=== PATIENT | male | born 1960 | race Caucasian/White ===

== ENCOUNTER 2020-04-11 03:42 | Outpatient (REF) | payer OTHER, SELFPAY ==
[2020-04-11 17:38] LABS: Iron 47 mcg/dL (45-160); Percent Iron Saturation 15 % (15-50); Total Iron Binding Capacity 311 mcg/dL (228-428); Unsaturated Iron Binding 264 ug/dL
[2020-04-11 17:58] LABS: Ferritin 556 ng/mL (20-250)
== END 2020-04-11 03:43 | disposition home or self-care (01) ==
LOC: HO.LAB 03:42
PROVIDERS: PCP Nurse Practitioner Family; Visit Provider Internal Medicine Gastroenterology
DX: R79.89 Other specified abnormal findings of blood chemistry (principal)
CPT/HCPCS: 82728; 83540

== ENCOUNTER → 2020-04-15 11:25 | Outpatient (BNVA) | payer OTHER, SELFPAY | PROVIDERS: PCP Nurse Practitioner Family; Visit Provider Internal Medicine Gastroenterology | DX: Z76.89 Persons encountering health services in other specified circumstances (principal) ==

== ENCOUNTER 2020-08-27 16:01 | Outpatient (REF) | payer OTHER, SELFPAY ==
--- NOTE | ~2020-08-27 | XR_ITS ---
EXAMINATION: XR HAND/WRIST, RIGHT CLINICAL INFORMATION: Pain right wrist. COMPARISON: None TECHNIQUE: Three views right wrist. FINDINGS: There is no visible acute fracture, dislocation or subluxation. There is mild loss of PIP and DIP joint space with periarticular bony erosive changes DIP joint 2nd digit and periarticular spurring PIP joint 1st and 5th digits. No visible acute fracture, dislocation or subluxation seen. 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 No visible acute fracture or dislocation seen.
== END 2020-08-27 16:02 | disposition home or self-care (01) ==
LOC: HO.HMGCX 16:01
PROVIDERS: PCP Nurse Practitioner Family; Visit Provider Nurse Practitioner Family
DX: M25.531 Pain in right wrist (principal)
CPT/HCPCS: 73110; 73130

== ENCOUNTER → 2021-03-31 15:04 | Outpatient (BNVA) | payer OTHER, SELFPAY | PROVIDERS: PCP Nurse Practitioner Family; Visit Provider Internal Medicine | DX: Z76.89 Persons encountering health services in other specified circumstances (principal) ==

== ENCOUNTER 2021-03-31 15:31 | Emergency (ER) | payer OTHER, SELFPAY ==
--- NOTE | ~2021-03-31 | CT_ITS ---
EXAMINATION: CT HEAD WITHOUT CONTRAST CT CERVICAL SPINE WITHOUT CONTRAST CLINICAL INFORMATION: Fell. Pain. COMPARISON: None. TECHNIQUE: Imaging was performed from the skull base to vertex without intravenous administration of contrast. In addition, helical noncontrast CT imaging was acquired through the cervical spine and source images were reviewed along with axial reconstructions and sagittal and coronal MPRs. [This CT examination was performed using dose optimization techniques as appropriate, variously including the following: *Automated exposure control *Adjustment of mA and/or kV according to patient size (this includes techniques or standardized protocols for targeted exams where dose is matched to indication/reason for exam; i.e. extremities or head) *Use of iterative reconstruction technique] DLP: 1534 mGy-cm FINDINGS: HEAD: No intracranial mass, hemorrhage, or midline shift is visualized. The ventricles and sulci are proportional. No extra-axial collections are identified. The paranasal sinuses and mastoid air cells are well aerated. CERVICAL SPINE: There is no evidence of acute cervical spine fracture. Vertebral bodies remain normal in height. Cervical vertebrae have normal alignment. There is multilevel degenerative spondylosis of the cervical spine with disc height narrowing and endplate spurs and facet joint arthrosis No pre- or paravertebral soft tissue abnormality is identified. Limited assessment of the lung apices is unremarkable. CT/CT head/brain wo con IMPRESSION: 1. No acute intracranial pathology. 2. No CT evidence of acute cervical spine fracture or traumatic subluxation
--- NOTE | ~2021-03-31 | CT_ITS ---
EXAMINATION: CT HEAD WITHOUT CONTRAST CT CERVICAL SPINE WITHOUT CONTRAST CLINICAL INFORMATION: Fell. Pain. COMPARISON: None. TECHNIQUE: Imaging was performed from the skull base to vertex without intravenous administration of contrast. In addition, helical noncontrast CT imaging was acquired through the cervical spine and source images were reviewed along with axial reconstructions and sagittal and coronal MPRs. [This CT examination was performed using dose optimization techniques as appropriate, variously including the following: *Automated exposure control *Adjustment of mA and/or kV according to patient size (this includes techniques or standardized protocols for targeted exams where dose is matched to indication/reason for exam; i.e. extremities or head) *Use of iterative reconstruction technique] DLP: 1534 mGy-cm FINDINGS: HEAD: No intracranial mass, hemorrhage, or midline shift is visualized. The ventricles and sulci are proportional. No extra-axial collections are identified. The paranasal sinuses and mastoid air cells are well aerated. CERVICAL SPINE: There is no evidence of acute cervical spine fracture. Vertebral bodies remain normal in height. Cervical vertebrae have normal alignment. There is multilevel degenerative spondylosis of the cervical spine with disc height narrowing and endplate spurs and facet joint arthrosis No pre- or paravertebral soft tissue abnormality is identified. Limited assessment of the lung apices is unremarkable. CT/CT cervical spine wo con IMPRESSION: 1. No acute intracranial pathology. 2. No CT evidence of acute cervical spine fracture or traumatic subluxation
[2021-03-31 15:42] VITALS: BP 172/111; PULSE 73; RESP 18; TEMP 36.8; O2SAT 96; BMI 30.5
[2021-03-31] MEDS: Acetaminophen 325 MG TABLET 650 MG PO (16:14)
--- NOTE | 2021-03-31 16:31 | ED.HEATRA ---
HPI - Head Injury General Chief complaint: Head Injury Stated complaint: head inj Time Seen by Provider: 03/31/21 15:40 Source: patient Mode of arrival: ambulatory Limitations: no limitations History of Present Illness HPI Narrative: 60-year-old patient presents to ED for neck pain. 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 Patient states most of the asphalt fell on his posterior neck. Patient states he had hard helmet on. Patient denies falling to the ground or loss of consciousness. Patient states he was on the ground on his knees working and things fell on his head neck. Patient states since incident only having posterior neck pain. Patient denies any nausea, vomiting, dizziness, chest pain, shortness of breath, abdominal pain, rectal bleeding, photophobia, rectal bleeding, vomiting blood or headache MD Complaint: head injury Related Data Home Medications Medication Instructions Recorded Confirmed ciprofloxacin HCl 500 mg tablet 500 mg PO BID 08/27/20 metronidazole 500 mg tablet 500 mg PO BID 08/27/20 Previous Rx's Medication Instructions Recorded prednisone 20 mg tablet 20 mg PO DAILY 9 Days #18 tab 08/27/20 azithromycin 250 mg tablet See Rx Instructions PO .COMPLEX #6 02/12/21 tab cyclobenzaprine 10 mg tablet 10 mg PO TID PRN #18 tab 03/31/21 naproxen 500 mg tablet 500 mg PO BID PRN #20 tab 03/31/21 Allergies Allergy/AdvReac Type Severity Reaction Status Date / Time cephalexin [From KEFLEX] Allergy Unknown HIVES Unverified 07/07/20 16:06 Review of Systems Review of Systems: Yes all other systems are reviewed and are negative Constitutional: Constitutional: Reports as per HPI, Reports no additional constitutional complaints and Reports headache(s) (Mild) Eyes: Eyes: Reports as per HPI and Reports no additional eye complaints ENT: Reports system reviewed and no additional complaints, except as documented, Reports as per HPI, Reports headache(s) (Mild) and Reports neck pain (posterior) Cardiovascular: Cardiovascular: Reports as per HPI and Reports no additional cardiovascular complaints Respiratory: Respiratory: Reports as per HPI and Reports no additional respiratory complaints Gastrointestinal: Gastrointestinal: Reports as per HPI and Reports no additional gastrointestinal complaints Genitourinary: Genitourinary: Reports no additional male genitourinary complaints and Reports as per HPI Musculoskeletal: Musculoskeletal: Reports no additional musculoskeletal complaints, Reports as per HPI and Reports neck pain (posterior) Neurologic: Reports system reviewed and no additional complaints, except as documented, Reports as per HPI and Reports headache(s) (Mild) Psychiatric: Psychiatric: Reports no additional psychiatric complaints and Reports as per HPI [facility] Past Medical History Medical History (Updated 03/31/21 @ 17:30 by STEFANO Colindres) HTN (hypertension) Osteoarthritis of both knees Surgical History History of colonoscopy Family History Family History Father History of heart attack Mother History of colon cancer Hx of diabetes mellitus Social History Social History Alcohol intake: current Alcohol intake frequency: a few times a month Advance Directives: No Advance Directives Information Provided: No Physical Exam Vital Signs: Vital Signs: Last Vital Signs Temp 98.2 F 03/31/21 15:42 Pulse 67 03/31/21 17:18 Resp 16 03/31/21 17:18 BP 140/89 H 03/31/21 17:18 Pulse Ox 99 03/31/21 17:18 Body Mass Index 30.5 Const: General: cooperative, healthy appearing, comfortable, no acute distress, well developed, alert, awake and Physically active Orientation/consciousness: patient oriented x3 HENMT: Head: Yes normal to inspection, Yes No palpable skull fracture present, Yes normocephalic and Yes atraumatic Head images: 1. tenderness on palpation. 2. Tenderness on palpation. Ears: hearing grossly normal bilaterally, external ears normal, TM's normal bilaterally, EAC's normal, mastoids normal and no periauricular adenopathy Eyes: General: appearance normal, both eyes and all related structures Neck: Neck: Yes normal visual inspection, Yes full ROM, Yes no lymphadenopathy, Yes no meningeal signs, Yes trachea midline, Yes supple and Yes tender (posterior) Chest: Other: Negative for any ecchymosis or tenderness. Chest palpation & inspection: normal inspection of the chest and normal palpation of entire chest wall Resp: Effort & Inspection: normal respiratory effort and able to speak in complete sentences Auscultation: clear to auscultation bilaterally Cardio: Jugular venous distension: no JVD Heart sounds: S1 normal heart sound present and S2 normal heart sound present GI: Inspection: Yes normal to inspection and No abdominal wall ecchymosis Palpation (GI): Soft to palpation, not firm, nontender, no guarding and not rigid : General: No CVA tenderness and Yes no CVA tenderness Back/Spine/Pelvis: Back: no CVA tenderness, No CVA tenderness and No back tenderness Skin: General skin exam: no rashes or lesions noted and elasticity normal Neuro: General: patient oriented x3, gait normal, no meningeal signs and CN's II-XI intact bilaterally Cranial nerves: Yes CN's II-XII intact bilaterally Extrem: General: Yes normal to inspection and Yes full ROM Psych: Appearance: grossly normal, well kempt and not disheveled Course Course Course Narrative: Patient will be sent for head and neck CT scan. Patient given Tylenol. for patient presently not in distress on symptoms Reevaluation(s) Reevaluation #1: CT scan of cervical spine came back negative for any fracture. Patient alert oriented x3. Patient has normal gait. Body was re-examined once again negative for signs of trauma. Time: 17:27 MDM - Head Injury MDM Narrative Medical decision making narrative: Head injury Discharge Plan Discharge Clinical Impression: Head injury, Cervical strain Patient Disposition: Home, Self-Care Instructions: Head Injury (ED), Cervical Sprain (ED) Additional Instructions: Your head CT scan and cervical spine CT scan came back normal negative for any fracture or bleed. You will be discharged with NSAIDs and muscle relaxer. Return to the ED for severe headache, altered mental status, nausea, vomiting, blurry vision, paralysis of upper extremities, abdominal pain, chest pain, rectal bleeding, vomiting blood, or any other concerning symptoms. Please follow up with PCP Prescriptions: New naproxen 500 mg tablet 500 mg PO BID PRN (Reason: pain) Qty: 20 RF: 0 cyclobenzaprine 10 mg tablet 10 mg PO TID PRN (Reason: pain) Qty: 18 RF: 0 No Action azithromycin 250 mg tablet See Rx Instructions PO .COMPLEX Qty: 6 RF: 0 ciprofloxacin HCl 500 mg tablet 500 mg PO BID RF: 0 metronidazole 500 mg tablet 500 mg PO BID RF: 0 prednisone 20 mg tablet 20 mg PO DAILY 9 Days Qty: 18 RF: 0 Stand Alone Forms: Work/School Release Interventions: ED Discharge Assessment Last Done: 03/31/21 17:37 Discharge Date/Time: 03/31/21 17:38 Print Language: Colombian
[2021-03-31 17:18] VITALS: BP 140/89; PULSE 67; RESP 16; O2SAT 99
[2021-03-31] MEDS: Ibuprofen 800 MG TABLET PO (17:25)
== END 2021-03-31 17:38 | disposition home or self-care (01) ==
PROVIDERS: Emergency Provider Emergency Medicine; PCP Nurse Practitioner Family
DX: S16.1XXA Strain of muscle, fascia and tendon at neck level, initial encounter (principal); M54.2 Cervicalgia; G44.309 Post-traumatic headache, unspecified, not intractable; Y29.XXXA Contact with blunt object, undetermined intent, initial encounter; Y93.9 Activity, unspecified; Y92.9 Unspecified place or not applicable; Y99.0 Civilian activity done for income or pay; Z79.899 Other long term (current) drug therapy
CPT/HCPCS: 70450; 72125; 99283; 99284

== ENCOUNTER → 2021-04-01 10:54 | Outpatient (BNVA) | payer OTHER, SELFPAY | PROVIDERS: PCP Nurse Practitioner Family; Visit Provider Internal Medicine | DX: S16.1XXA Strain of muscle, fascia and tendon at neck level, initial encounter (principal); W22.8XXA Striking against or struck by other objects, initial encounter | CPT/HCPCS: 99202 ==

== ENCOUNTER → 2021-05-01 08:40 | Outpatient (BNVA) | payer OTHER, SELFPAY | PROVIDERS: PCP Nurse Practitioner Family; Visit Provider Physician Assistant Medical | DX: G35 Multiple sclerosis (principal) ==

== ENCOUNTER 2021-06-19 09:45 | Outpatient (REF) | payer OTHER, SELFPAY ==
[2021-06-19 10:41] LABS: Alanine Aminotransferase 21 U/L (0-40); Albumin Level 4.3 g/dL (3.5-5.0); Alkaline Phosphatase 66 U/L (39-117); Anion Gap 11 (12-20); Aspartate Amino Transferase 16 U/L (5-37); Bilirubin Total 1.4 mg/dL (0.0-1.0); Blood Urea Nitrogen 16 mg/dL (9-16); Calcium 9.7 mg/dL (8.4-10.2); Carbon Dioxide 29 mmol/L (22-29); Chloride 104 mmol/L (96-108); Cholesterol 211 mg/dL; Estimated Glomerular Filt Rate > 60; Glucose Fasting 104 mg/dL (60-99); HDL Cholesterol 54 mg/dL; LDL Cholesterol Calculated 137 mg/dl; Potassium 4.2 mmol/L (3.3-5.1); Sodium 140 mmol/L (135-145); Total Protein 7.6 g/dL (6.5-8.0); Triglycerides 102 mg/dL
[2021-06-19 11:04] LABS: Prostate Specific Antigen Scr 1.42 ng/mL (<0.05-4.0); TSH reflex Free T4 1.06 uIU/mL (0.32-4.0)
== END 2021-06-19 09:46 | disposition home or self-care (01) ==
LOC: HO.LAB 09:45
PROVIDERS: Visit Provider Nurse Practitioner Family
DX: Z12.5 Encounter for screening for malignant neoplasm of prostate (principal); Z13.29 Encounter for screening for other suspected endocrine disorder; Z13.220 Encounter for screening for lipoid disorders
CPT/HCPCS: 36415; 80053; 80061; 84153; 84443

== ENCOUNTER 2022-01-15 06:24 | Outpatient (REF) | payer OTHER, SELFPAY ==
[2022-01-15 08:18] LABS: C Reactive Protein 0.52 mg/dL (< or = 0.50); Cholesterol 185 mg/dL; HDL Cholesterol 52 mg/dL; LDL Cholesterol Calculated 121 mg/dl; Triglycerides 63 mg/dL
[2022-01-15 08:42] LABS: Ferritin 574 ng/mL (20-250)
[2022-01-15 08:52] LABS: Erythrocyte Sedimentation Rate 10 MM/HR (0-15)
== END 2022-01-15 06:25 | disposition home or self-care (01) ==
LOC: HO.LAB 06:24
PROVIDERS: PCP Nurse Practitioner Family; Visit Provider Nurse Practitioner Family
DX: E78.5 Hyperlipidemia, unspecified (principal); R79.89 Other specified abnormal findings of blood chemistry
CPT/HCPCS: 36415; 80061; 82728; 85652; 86140

== ENCOUNTER 2022-01-21 15:17 | Outpatient (REF) | payer OTHER, SELFPAY ==
[2022-01-21 16:38] LABS: Uric Acid 7.3 mg/dL (3.4-7.0)
[2022-01-21 16:53] LABS: Erythrocyte Sedimentation Rate 12 MM/HR (0-15)
== END 2022-01-21 15:18 | disposition home or self-care (01) ==
LOC: HO.LAB 15:17
PROVIDERS: PCP Nurse Practitioner Family; Visit Provider Podiatrist
DX: R70.0 Elevated erythrocyte sedimentation rate (principal); M10.9 Gout, unspecified
CPT/HCPCS: 36415; 84550; 85652

== ENCOUNTER → 2022-04-09 08:45 | Outpatient (BNVA) | payer OTHER, SELFPAY | PROVIDERS: PCP Nurse Practitioner Family | DX: Z02.79 Encounter for issue of other medical certificate (principal) ==

== ENCOUNTER 2023-02-09 09:22 | Outpatient (AMB) | payer OTHER, SELFPAY ==
--- NOTE | 2023-02-09 09:31 | A.OFFPC_ITS ---
Vital Signs 02/09/23 09:32 02/09/23 10:18 Height 6 ft Weight 222 lb 8 oz BMI 30.2 BP 160/102 H 136/98 H Blood Pressure Location Rt brachial Rt brachial Position Sitting Sitting Pulse 83 Pulse Source Pulse Oximeter Pulse Oximetry (%) 96 Oxygen Delivery Method Room Air Intake Visit Reasons: follow up Allergies cephalexin [From KEFLEX] Allergy (Unknown, Verified 02/09/23 09:33) HIVES Medication List - Last Reconciled 02/09/23 by KAL Weiss indomethacin 50 mg PO BID PRN 30 days Tobacco use date assessed: 02/09/23 Dental Screening Dental Screen Date: 02/09/23 Did you have a dental visit in the last 12 months?: Yes Did you have a dental problem in the last 6 months where you did not have access to dental care?: No Was dental information given to patient?: Patient has dentist HPI follow up HPI Details Pt is here for a PE. Will order labs. Colon screen is up to date. Due for PSA, will order. Denies dribbling with urination, weak stream, and nocturia. HTN: Will have pt monitor his blood pressure at home and record readings. Denies chest pain, shortness of breath, headache, dizziness, and blurred vision. Pt has a family hx of heart attack (father at age 54). Will do an EKG in office. Pt's left 5th finger is contracted (Dupuytren's contracture). Will refer to hand specialist. [facility] Medical History (Updated 02/09/23 @ 10:24 by KAL Weiss) HTN (hypertension) Lumbar radiculopathy Osteoarthritis of both knees Surgical History History of colonoscopy Family History Father History of heart attack Mother History of colon cancer Hx of diabetes mellitus Social History Housing: House Alcohol intake: current Alcohol intake frequency: a few times a month Patient Tobacco Use Status: Never used Tobacco e-Cigarette/Vaping Use: Never Used Second Hand Smoke Exposure: No service: No Current occupational status: employed Current occupation: [employer] Current occupational exposures/hazards: No Cognitive needs: No Hearing needs: No Vision needs: No Questionnaire Thrive Questionnaire Date Thrive assessed: 08/26/21 JENNIFER-7 AMB Questionnaire JENNIFER-7 Date JENNIFER - 7 assessed: 08/26/21 Source: Developed by Drs. Cristian Moreira, Cat Barajas, Isra Cedeno and colleagues, with an educational santy from [employer]. Review of Systems Const Denies chills and Denies fever(s) Eyes Denies blurry vision ENT Denies vertigo, Denies dizziness and Denies sore throat Card Denies chest pain at rest, Denies chest pain with activity, Denies diaphoresis, Denies dyspnea and Denies dyspnea on exertion Resp Denies cough, Denies dyspnea, Denies dyspnea on exertion and Denies wheezing GI Denies abdominal pain, Denies melena, Denies hematochezia, Denies constipation, Denies diarrhea and Denies loose stools Denies hematuria Musc Denies numbness and Denies tingling Skin/Breast Denies lesions Neuro Denies vertigo, Denies dizziness, Denies numbness and Denies tingling Psych Denies anxiety, Denies depression, Denies homicidal ideation, Denies suicidal ideation and Denies other (substance abuse) Aller/Immun Denies wheezing Physical exam (Primary Care) Vital Signs: Last Vital Signs Pulse 83 02/09/23 09:32 BP 136/98 H 02/09/23 10:18 Pulse Ox 96 02/09/23 09:32 Oxygen Delivery Method Room Air 02/09/23 09:32 BMI result Body Mass Index 30.2 Tobacco/Smoking Status: Tobacco use Status Tobacco use date assessed 02/09/23 02/09/23 09:39 Patient Tobacco Use Status Never used Tobacco 02/09/23 09:34 e-Cigarette/Vaping Use Never Used 02/09/23 09:34 Thrive Assessment: Date of Thrive Assessment Date Thrive assessed 08/26/21 02/09/23 09:34 Const General: cooperative Nutritional Appearance: well nourished Orientation/consciousness: patient oriented x3 HENMT Head: Yes normal to inspection, Yes normocephalic and Yes atraumatic Ears: TM's normal bilaterally Eyes General: appearance normal, both eyes and all related structures Alignment and Position: alignment normal and position normal Neck Neck: Yes normal visual inspection and Yes no lymphadenopathy Thyroid: Thyroid normal Resp Effort & Inspection: normal respiratory effort Auscultation: clear to auscultation bilaterally Cardio Rate: regular rate Rhythm: regular rhythm Heart sounds: S1 normal heart sound present, S2 normal heart sound present and no murmurs GI Palpation (GI): Soft to palpation and nontender Auscultation: normal bowel sounds Other: HERO: prostate not enlarged, no nodules palpated, palpable central groove Male General Exam: Yes normal external exam Penis: normal penis Scrotum: scrotum normal, testes descended bilaterally and no inguinal hernias Testes: no testicular mass Skin Rashes: no rashes Neuro General: patient oriented x3, moves all extremities, no focal motor deficits and deep tendon reflexes 2+ bilaterally Romberg Test: Negative Extrem Other: left hand 5th finger contracted/partially flexed, unable to completely extend (DC). just inferior with indurated linear tissue (DC) Psych Appearance: grossly normal Mental Status: mental status grossly normal Speech and movement: Normal speech and movement present Affect: normal affect Attitude: cooperative Thought process: Normal thought process present Thought content: Normal thought content present Insight: Good insight present (Psych) Judgement: Good judgement present (Psych) Assessment and Plan Assessment & Plan (1) Physical exam: Code(s): Z00.00 - Encounter for general adult medical examination without abnormal findings Plan: Labs ordered (2) Screening PSA (prostate specific antigen): Code(s): Z12.5 - Encounter for screening for malignant neoplasm of prostate Plan: PSA ordered (3) Dupuytren contracture: Code(s): M72.0 - Palmar fascial fibromatosis [Dupuytren] Plan The patient agreed to the use of a medical center representative for this encounter. Scribed for KAL Bolivar by Luisa Zhou medical center representative, on 02/09/2023 at 09:55 EST. Orders: Orders Comprehensive [place]. Panel Fast Today Z00.00 - Encounter for general adult medical examination without abnormal findings Lipid Panel Today Z00.00 - Encounter for general adult medical examination without abnormal findings TSH reflex Free T4 Today Z00.00 - Encounter for general adult medical examination without abnormal findings Complete Blood Count Auto Diff Today Z00.00 - Encounter for general adult medical examination without abnormal findings UA CC w/rflx Micro + Cult Today Z00.00 - Encounter for general adult medical examination without abnormal findings Prostate Specific Antigen Scr Today Z12.5 - Encounter for screening for malignant neoplasm of prostate AMB EKG-In Office Today Z00.00 - Encounter for general adult medical examination without abnormal findings Referrals Orthopedics Referral M72.0 - Palmar fascial fibromatosis [Dupuytren] Coding Level of Care Code Est Pt Prev Care 40-64y(64425) Diagnoses Physical exam Z00.00 Screening PSA (prostate specific antigen) Z12.5 Dupuytren contracture M72.0
[2023-02-09 09:32] VITALS: BP 160/102; PULSE 83; O2SAT 96; BMI 30.2
[2023-02-09 10:18] VITALS: BP 136/98
== END 2023-02-09 10:28 | disposition home or self-care (01) ==
PROVIDERS: PCP Nurse Practitioner Family; Visit Provider Nurse Practitioner Family
DX: Z00.00 Encounter for general adult medical examination without abnormal findings (principal); Z12.5 Encounter for screening for malignant neoplasm of prostate; M72.0 Palmar fascial fibromatosis [Dupuytren]
CPT/HCPCS: 99396

== ENCOUNTER 2023-08-25 09:19 | Outpatient (REF) | payer OTHER, SELFPAY ==
[2023-08-25 09:35] LABS: MANUAL DIFF FLAG NO
[2023-08-25 10:49] LABS: Basophils Percent Auto 0.5 % (0-2); Eosinophils Absolute Auto 0.1 X10*3/uL (0.0-0.4); Eosinophils Percent Auto 1.1 % (0-4); Hematocrit 48.2 % (42.0-52.0); Hemoglobin 16.3 g/dl (14.0-18.0); Imm Gran Abs Auto 0.03 X10*3/uL (0.00-0.03); Imm Gran Pct Auto 0.4 % (0.0-0.4); Lymphocytes Absolute Auto 2.1 X10*3/uL (1.2-4.9); Lymphocytes Percent Auto 28.6 % (20-40); Mean Corpuscular HGB Conc 33.8 g/dl (31.0-36.0); Mean Corpuscular Hemoglobin 29.7 pg (27.0-33.0); Mean Corpuscular Volume 87.8 fL (80.0-98.0); Mean Platelet Volume 10.1 fL (9.4-12.4); Monocytes Absolute Auto 0.6 X10*3/uL (0.1-1.2); Monocytes Percent Auto 8.3 % (2-11); Neutrophils Absolute Auto 4.5 x10*3/uL (2.0-8.3); Neutrophils Percent Auto 61.1 % (45-73); Platelet Count 275 X10*3/uL (160-400); Red Blood Count 5.49 X10*6/uL (4.60-5.80); Red Cell Distribution Width 12.3 % (11.0-16.0); White Blood Count 7.3 X10*3/uL (4.8-10.8)
[2023-08-25 10:52] LABS: Appearance Urine Clear; Color Urine Yellow; Glucose Urine UA Negative (Negative); Leukocyte Esterase Urine Negative (Negative); Nitrite Urine Negative (Negative); PH 5.5 (5.0-9.0); Urine Blood Negative (Negative); Urine Ketones Negative (Negative); Urine Protein Negative (Neg-Trace)
[2023-08-25 11:24] LABS: Alanine Aminotransferase 16 U/L (0-40); Albumin Level 4.2 g/dL (3.5-5.0); Alkaline Phosphatase 69 U/L (39-117); Anion Gap 14 (12-20); Aspartate Amino Transferase 15 U/L (5-37); Bilirubin Total 1.4 mg/dL (0.0-1.0); Blood Urea Nitrogen 14 mg/dL (9-16); Calcium 9.5 mg/dL (8.4-10.2); Carbon Dioxide 24 mmol/L (22-29); Chloride 107 mmol/L (96-108); Cholesterol 208 mg/dL (<200); Estimated Glomerular Filt Rate > 60; Glucose Fasting 104 mg/dL (60-99); HDL Cholesterol 59 mg/dL (>40); LDL Cholesterol Calculated 133 mg/dL (<100); Potassium 3.7 mmol/L (3.3-5.1); Sodium 141 mmol/L (135-145); Total Protein 7.6 g/dL (6.5-8.0); Triglycerides 83 mg/dL (<150)
[2023-08-25 11:40] LABS: TSH reflex Free T4 1.48 uIU/mL (0.32-4.0)
== END 2023-08-25 09:20 | disposition home or self-care (01) ==
LOC: HO.LAB 09:19
PROVIDERS: PCP Nurse Practitioner Family; Visit Provider Nurse Practitioner Family
DX: Z00.00 Encounter for general adult medical examination without abnormal findings (principal); Z12.5 Encounter for screening for malignant neoplasm of prostate; Z13.6 Encounter for screening for cardiovascular disorders
CPT/HCPCS: 36415; 80053; 80061; 81003; 84153; 84443; 85025

== ENCOUNTER 2023-08-30 08:59 | Outpatient (AMB) | payer OTHER, SELFPAY ==
[2023-08-30 09:08] VITALS: BP 130/88; PULSE 84; O2SAT 95; BMI 30.6
--- NOTE | 2023-08-30 09:08 | MHC.PC.OV ---
Vital Signs 08/30/23 09:08 Height 6 ft Weight 226 lb BMI 30.6 BP 130/88 Blood Pressure Location Lt brachial Position Sitting Pulse 84 Pulse Source Pulse Oximeter Pulse Oximetry (%) 95 Oxygen Delivery Method Room Air Intake Visit Reasons: Annual PE Intake Note: Pt is here for his Annual PE Allergies cephalexin [From KEFLEX] Allergy (Unknown, Verified 08/30/23 10:07) HIVES Medication List - Last Reconciled 08/30/23 by KAL Weiss indomethacin 50 mg PO BID PRN 30 days Tobacco use date assessed: 08/30/23 Dental Screening Dental Screen Date: 08/30/23 Did you have a dental visit in the last 12 months?: Yes Did you have a dental problem in the last 6 months where you did not have access to dental care?: No Was dental information given to patient?: Patient has dentist HPI Annual PE HPI Details Pt is here for a PE. Labs were already performed. Colon screen is up to date. PSA is up to date. Denies dribbling with urination, weak stream, and incomplete bladder emptying. He does report frequent nocturia but reports drinking a lot of water throughout the day. Pt was seeing GI for elevated ferritin which was thought to be due to excessive alcohol use. Will repeat ferritin. Pt brought in blood pressure from home and they are elevated. Pt does not want to start any medications for this. He would like to try to lower BP on his own and revisit in 6 months. Pt will continue to monitor his BP at home. Advised pt to cut down on sodium intake. Hx of dyslipidemia, will repeat labs. [facility] Medical History Lumbar radiculopathy HTN (hypertension) Osteoarthritis of both knees Surgical History History of colonoscopy Family History Father History of heart attack Mother History of colon cancer Hx of diabetes mellitus Social History Housing: House Alcohol intake: current Alcohol intake frequency: a few times a month Patient Tobacco Use Status: Never used Tobacco e-Cigarette/Vaping Use: Never Used Second Hand Smoke Exposure: No service: No Current occupational status: employed Current occupation: [employer] Current occupational exposures/hazards: No Cognitive needs: No Hearing needs: No Vision needs: No Questionnaire PHQ-9 Over the last 2 weeks, how often have you been bothered by any of the following problems? 1. Little interest or pleasure in doing things: not at all 2. Feeling down, depressed, or hopeless: not at all 3. Trouble falling or staying asleep, or sleeping too much: not at all 4. Feeling tired or having little energy: not at all 5. Poor appetite or overeating: not at all 6. Feeling bad about yourself - or that you are a failure or have let yourself or your family down: not at all 7. Trouble concentrating on things, such as reading the newspaper or watching television: not at all 8. Moving or speaking so slowly that other people could have noticed. Or the opposite - being so fidgety or restless that you have been moving around a lot more than usual: not at all 9. Thoughts that you would be better off or of hurting yourself in some way: not at all Total score: 0 Depression Screening Interpretation: Negative Depression Screening Done: Yes 81460 - PHQ-9 Billing: Yes Source: Developed by Drs. Cristian Moreira, Cat Barajas, Isra Cedeno and colleagues, with an educational santy from [employer]. Thrive Questionnaire Date Thrive assessed: 08/30/23 I am a: Patient What is your living situation today?: I have a steady place to live Within the past 12 months, did the food you bought not last and you didn't have the money to get more?: Never true Within the past 12 months, did you worry whether your food would run out before you got money to buy more?: Never true Do you have trouble paying for medicines?: No Do you have trouble getting transportation to medical appointments?: No Do you have trouble paying your heating and electricity bill?: No Do you have trouble taking care of your child, family member or friend?: No Do you have trouble with day-to-day activities such as bathing, preparing meals, shopping, managing finances, etc.?: No Are you currently unemployed and looking for a job?: No Are you interested in more education?: No Currently or been in a relationship where the following occur: no concerns reported THRIVE Score: 0 AUDIT C Alcohol Use Questionnaire (AUDIT-C) 1. How often do you have a drink containing alcohol?: 2-3 times a week 2. How many drinks containing alcohol do you have on a typical day when you are drinking?: 1 or 2 3. How often do you have six or more drinks on one occasion?: Never Total Score: 3 Score Reviewed/Action Taken: Yes JENNIFER-7 AMB Questionnaire JENNIFER-7 Date JENNIFER - 7 assessed: 08/30/23 Feeling nervous, anxious, or on edge: 0 = Not at all Not being able to stop or control worryin = Not at all Worrying too much about different things: 0 = Not at all Trouble relaxin = Not at all Being so restless that it is hard to sit still: 0 = Not at all Becoming easily annoyed or irritable: 0 = Not at all Feeling afraid as if something awful might happen: 0 = Not at all Total JENNIFER-7 score (0-4 normal; 5-9 mild; 10-14 moderate; 15-21 severe): 0 Source: Developed by Drs. Cristian Moreira, Cat Barajas, Isra Cedeno and colleagues, with an educational santy from [employer]. JENNIFER-7 Assessment Billing JENNIFER-7 Assessment Tool: JENNIFER-7 Assessment 73758 Review of Systems Const Denies chills and Denies fever(s) Eyes Denies blurry vision ENT Denies vertigo, Denies dizziness and Denies sore throat Card Denies chest pain at rest, Denies chest pain with activity, Denies diaphoresis, Denies dyspnea and Denies dyspnea on exertion Resp Denies cough, Denies dyspnea, Denies dyspnea on exertion and Denies wheezing GI Denies abdominal pain, Denies melena, Denies hematochezia, Denies constipation, Denies diarrhea and Denies loose stools Denies hematuria Musc Denies numbness and Denies tingling Skin/Breast Denies lesions Neuro Denies vertigo, Denies dizziness, Denies numbness and Denies tingling Psych Denies anxiety, Denies depression, Denies homicidal ideation, Denies suicidal ideation and Denies other (substance abuse) Aller/Immun Denies wheezing Physical exam (Primary Care) Vital Signs: Last Vital Signs Pulse 84 08/30/23 09:08 BP 130/88 08/30/23 09:08 Pulse Ox 95 08/30/23 09:08 Oxygen Delivery Method Room Air 08/30/23 09:08 BMI result Body Mass Index 30.6 Tobacco/Smoking Status: Tobacco use Status Tobacco use date assessed 08/30/23 08/30/23 09:14 Patient Tobacco Use Status Never used Tobacco 08/30/23 09:14 e-Cigarette/Vaping Use Never Used 08/30/23 09:14 Depression Screening Interpretation: Negative Thrive Assessment: Date of Thrive Assessment Date Thrive assessed 08/26/21 08/30/23 09:14 Currently or been in a relationship where the following occur: no concerns reported Const General: cooperative Nutritional Appearance: well nourished Orientation/consciousness: patient oriented x3 HENMT Head: Yes normal to inspection, Yes normocephalic and Yes atraumatic Ears: TM's normal bilaterally Eyes General: appearance normal, both eyes and all related structures Alignment and Position: alignment normal and position normal Neck Neck: Yes normal visual inspection and Yes no lymphadenopathy Thyroid: Thyroid normal Resp Effort & Inspection: normal respiratory effort Auscultation: clear to auscultation bilaterally Cardio Rate: regular rate Rhythm: regular rhythm Heart sounds: S1 normal heart sound present, S2 normal heart sound present and no murmurs GI Palpation (GI): Soft to palpation and nontender Auscultation: normal bowel sounds Male General Exam: Yes normal external exam Penis: normal penis Scrotum: scrotum normal, testes descended bilaterally and no inguinal hernias Testes: no testicular mass Skin Rashes: no rashes Neuro General: patient oriented x3, moves all extremities, no focal motor deficits and deep tendon reflexes 2+ bilaterally Romberg Test: Negative Psych Appearance: grossly normal Mental Status: mental status grossly normal Speech and movement: Normal speech and movement present Affect: normal affect Attitude: cooperative Thought process: Normal thought process present Thought content: Normal thought content present Insight: Good insight present (Psych) Judgement: Good judgement present (Psych) Assessment and Plan Assessment & Plan (1) Elevated ferritin: Code(s): R79.89 - Other specified abnormal findings of blood chemistry Plan: Ferritin ordered (2) Dyslipidemia: Code(s): E78.5 - Hyperlipidemia, unspecified Plan: labs ordered (3) HTN (hypertension): Code(s): I10 - Essential (primary) hypertension Plan: will cont to check BP, will see pt in 6 months, refused meds right now. Plan The patient agreed to the use of a medical psychotherapist for this encounter. Scribed for KAL Bolivar by Luisa Zhou medical psychotherapist, on 08/30/2023 at 09:20 EST. Orders: Orders Ferritin 2 Months E78.5 - Hyperlipidemia, unspecified, R79.89 - Other specified abnormal findings of blood chemistry Comprehensive [place]. Panel Fast 2 Months E78.5 - Hyperlipidemia, unspecified Lipid Panel 2 Months E78.5 - Hyperlipidemia, unspecified Coding Level of Care Code Est Pt Prev Care 40-64y(14288) Diagnoses Elevated ferritin R79.89 Dyslipidemia E78.5 HTN (hypertension) I10 Additional Codes JENNIFER-7 Assessment Billing - JENNIFER-7 Assessment Tool: JENNIFER-7 Assessment [id number] ([id number])
== END 2023-08-30 09:41 | disposition home or self-care (01) ==
PROVIDERS: PCP Nurse Practitioner Family; Visit Provider Nurse Practitioner Family
DX: Z00.00 Encounter for general adult medical examination without abnormal findings (principal); R79.89 Other specified abnormal findings of blood chemistry; E78.5 Hyperlipidemia, unspecified; I10 Essential (primary) hypertension
CPT/HCPCS: 99396

== ENCOUNTER 2023-11-11 08:58 | Outpatient (REF) | payer OTHER, SELFPAY ==
[2023-11-11 10:38] LABS: Alanine Aminotransferase 19 U/L (0-40); Albumin Level 4.3 g/dL (3.5-5.0); Alkaline Phosphatase 63 U/L (39-117); Anion Gap 14 (12-20); Aspartate Amino Transferase 15 U/L (5-37); Bilirubin Total 1.2 mg/dL (0.0-1.0); Blood Urea Nitrogen 18 mg/dL (9-16); Calcium 9.5 mg/dL (8.4-10.2); Carbon Dioxide 24 mmol/L (22-29); Chloride 106 mmol/L (96-108); Cholesterol 193 mg/dL (<200); Estimated Glomerular Filt Rate > 60; Glucose Fasting 101 mg/dL (60-99); HDL Cholesterol 54 mg/dL (>40); LDL Cholesterol Calculated 119 mg/dL (<100); Potassium 3.7 mmol/L (3.3-5.1); Sodium 140 mmol/L (135-145); Total Protein 7.8 g/dL (6.5-8.0); Triglycerides 100 mg/dL (<150)
[2023-11-11 10:53] LABS: Ferritin 604 ng/mL (20-250)
== END 2023-11-11 08:59 | disposition home or self-care (01) ==
LOC: HO.LAB 08:58
PROVIDERS: PCP Nurse Practitioner Family; Visit Provider Nurse Practitioner Family
DX: E78.5 Hyperlipidemia, unspecified (principal); R79.89 Other specified abnormal findings of blood chemistry
CPT/HCPCS: 36415; 80053; 80061; 82728

== ENCOUNTER 2024-02-29 09:33 | Outpatient (AMB) | payer BC, SELFPAY ==
--- NOTE | 2024-02-29 09:38 | A.OFFPC_ITS ---
Vital Signs 02/29/24 09:44 Height 6 ft Weight 225 lb BMI 30.5 BP 140/82 H Blood Pressure Location Rt brachial Position Sitting Pulse 82 Pulse Source Pulse Oximeter Pulse Oximetry (%) 97 Oxygen Delivery Method Room Air Intake Visit Reasons: 6M F/U Intake Note: pt is here for 6 month follow up Public Address System Operator Required: No Accompanied by: Self / Same As Patient Allergies cephalexin [From KEFLEX] Allergy (Unknown, Verified 02/29/24 09:48) HIVES Tobacco use date assessed: 08/30/23 Dental Screening Dental Screen Date: 08/30/23 HPI 6M F/U HPI Details HTN: Pt's blood pressure is elevated today. Pt reports that his blood pressure at home is stable (see scanned copy). He reports that he has been limiting his sodium intake. Pt has been walking and remaining active. Will have pt continue to monitor his blood pressure at home. Will order labs. Dyslipidemia: Will order labs. Denies chest pain, shortness of breath, headache, dizziness, and blurred vision. 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 1. Little interest or pleasure in doing things: not at all 2. Feeling down, depressed, or hopeless: not at all 3. Trouble falling or staying asleep, or sleeping too much: not at all 4. Feeling tired or having little energy: not at all 5. Poor appetite or overeating: not at all 6. Feeling bad about yourself - or that you are a failure or have let yourself or your family down: not at all 7. Trouble concentrating on things, such as reading the newspaper or watching television: not at all 8. Moving or speaking so slowly that other people could have noticed. Or the opposite - being so fidgety or restless that you have been moving around a lot more than usual: not at all 9. Thoughts that you would be better off or of hurting yourself in some way: not at all Total score: 0 Depression Screening Interpretation: Negative Depression Screening Done: Yes 14410 - PHQ-9 Billing: Yes Source: Developed by Drs. Cristian Moreira, Cat Barajas, Isra Cedeno and colleagues, with an educational santy from [employer]. Thrive Questionnaire Date Thrive assessed: 02/29/24 I am a: Patient What is your living situation today?: I have a steady place to live Within the past 12 months, did the food you bought not last and you didn't have the money to get more?: I choose not to answer this question Within the past 12 months, did you worry whether your food would run out before you got money to buy more?: Never true Do you have trouble paying for medicines?: I choose not to answer this question Do you have trouble getting transportation to medical appointments?: I choose not to answer this question Do you have trouble paying your heating and electricity bill?: I choose not to answer this question Do you have trouble taking care of your child, family member or friend?: I choose not to answer this question Do you have trouble with day-to-day activities such as bathing, preparing meals, shopping, managing finances, etc.?: No Are you currently unemployed and looking for a job?: No Are you interested in more education?: Yes Please select the resources that you would like help with: None Currently or been in a relationship where the following occur: I choose not to answer THRIVE Score: 0 AUDIT C Alcohol Use Questionnaire (AUDIT-C) 1. How often do you have a drink containing alcohol?: 2-4 times a month 2. How many drinks containing alcohol do you have on a typical day when you are drinking?: 1 or 2 3. How often do you have six or more drinks on one occasion?: Never Total Score: 2 Score Reviewed/Action Taken: Yes JENNIFER-7 AMB Questionnaire JENNIFER-7 Date JENNIFER - 7 assessed: 02/29/24 Feeling nervous, anxious, or on edge: 0 = Not at all Not being able to stop or control worryin = Not at all Worrying too much about different things: 0 = Not at all Trouble relaxin = Not at all Being so restless that it is hard to sit still: 0 = Not at all Becoming easily annoyed or irritable: 0 = Not at all Feeling afraid as if something awful might happen: 0 = Not at all Total JENNIFER-7 score (0-4 normal; 5-9 mild; 10-14 moderate; 15-21 severe): 0 Source: Developed by Drs. Cristian Moreira, Cat Barajas, Isra Cedeno and colleagues, with an educational santy from [employer]. JENNIFER-7 Assessment Billing JENNIFER-7 Assessment Tool: JENNIFER-7 Assessment [id number] Review of Systems Const Reports as per HPI Physical exam (Primary Care) Vital Signs: Last Vital Signs Pulse 82 02/29/24 09:44 BP 140/82 H 02/29/24 09:44 Pulse Ox 97 02/29/24 09:44 Oxygen Delivery Method Room Air 02/29/24 09:44 BMI result Body Mass Index 30.5 Tobacco/Smoking Status: Tobacco use Status Tobacco use date assessed 08/30/23 02/29/24 09:38 Patient Tobacco Use Status Never used Tobacco 02/29/24 09:38 e-Cigarette/Vaping Use Never Used 02/29/24 09:38 PHQ-9: PHQ-9 Score PHQ-9: Total score 0 02/29/24 09:50 Depression Screening Interpretation: Negative Thrive Assessment: Date of Thrive Assessment Date Thrive assessed 02/29/24 02/29/24 09:50 Currently or been in a relationship where the following occur: I choose not to answer Const General: cooperative Orientation/consciousness: patient oriented x3 Resp Effort & Inspection: normal respiratory effort Auscultation: clear to auscultation bilaterally Cardio Rate: regular rate Rhythm: regular rhythm Heart sounds: S1 normal heart sound present and S2 normal heart sound present Neuro General: patient oriented x3 Psych Appearance: grossly normal Mental Status: mental status grossly normal Speech and movement: Normal speech and movement present Affect: normal affect Attitude: cooperative Thought process: Normal thought process present Thought content: Normal thought content present Insight: Good insight present (Psych) Judgement: Good judgement present (Psych) Assessment and Plan Assessment & Plan (1) HTN (hypertension): Code(s): I10 - Essential (primary) hypertension Plan: cont to monitor BP at home (2) Dyslipidemia: Code(s): E78.5 - Hyperlipidemia, unspecified Plan: labs ordered Plan The patient agreed to the use of a medical assisting instructor for this encounter. Scribed for KAL Bolivar by Luisa Zhou medical assisting instructor, on 02/29/2024 at 10:00 EST. Orders: Orders Complete Blood Count Auto Diff Today E78.5 - Hyperlipidemia, unspecified, I10 - Essential (primary) hypertension Comprehensive [place]. Panel Fast Today E78.5 - Hyperlipidemia, unspecified, I10 - Essential (primary) hypertension TSH reflex Free T4 Today E78.5 - Hyperlipidemia, unspecified, I10 - Essential (primary) hypertension Lipid Panel Today E78.5 - Hyperlipidemia, unspecified, I10 - Essential (primary) hypertension UA CC w/rflx Micro + Cult Today E78.5 - Hyperlipidemia, unspecified, I10 - Essential (primary) hypertension Coding Level of Care Code Est Pt Level 3 (24279) Diagnoses HTN (hypertension) I10 Dyslipidemia E78.5 Additional Codes JENNIFER-7 Assessment Billing - JENNIFER-7 Assessment Tool: JENNIFER-7 Assessment [id number] ([id number])
[2024-02-29 09:44] VITALS: BP 140/82; PULSE 82; O2SAT 97; BMI 30.5
== END 2024-02-29 11:50 | disposition home or self-care (01) ==
PROVIDERS: PCP Nurse Practitioner Family; Visit Provider Nurse Practitioner Family
DX: I10 Essential (primary) hypertension (principal); E78.5 Hyperlipidemia, unspecified
CPT/HCPCS: 83036; 99213

== ENCOUNTER 2024-03-23 08:05 | Outpatient (REF) | payer BC, SELFPAY ==
[2024-03-23 08:16] LABS: MANUAL DIFF FLAG NO
[2024-03-23 08:28] LABS: Basophils Absolute Auto 0.1 X10*3/uL (0.0-0.2); Basophils Percent Auto 0.6 % (0-2); Eosinophils Absolute Auto 0.2 X10*3/uL (0.0-0.4); Eosinophils Percent Auto 1.9 % (0-4); Hemoglobin 16.5 g/dl (14.0-18.0); Imm Gran Abs Auto 0.03 X10*3/uL (0.00-0.03); Imm Gran Pct Auto 0.4 % (0.0-0.4); Lymphocytes Percent Auto 23.9 % (20-40); Mean Corpuscular HGB Conc 34.4 g/dl (31.0-36.0); Mean Corpuscular Hemoglobin 30.6 pg (27.0-33.0); Mean Corpuscular Volume 88.9 fL (80.0-98.0); Mean Platelet Volume 9.5 fL (9.4-12.4); Monocytes Absolute Auto 0.8 X10*3/uL (0.1-1.2); Monocytes Percent Auto 8.9 % (2-11); Neutrophils Absolute Auto 5.5 x10*3/uL (2.0-8.3); Neutrophils Percent Auto 64.3 % (45-73); Platelet Count 322 X10*3/uL (160-400); Red Cell Distribution Width 12.3 % (11.0-16.0); White Blood Count 8.5 X10*3/uL (4.8-10.8)
[2024-03-23 08:37] LABS: Appearance Urine Clear; Color Urine Yellow; Glucose Urine UA Negative (Negative); Leukocyte Esterase Urine Trace (Negative); Nitrite Urine Negative (Negative); PH 5.5 (5.0-9.0); UMIC TRIGGER UACC YES; Urine Blood Negative (Negative); Urine Ketones Negative (Negative); Urine Protein Negative (Neg-Trace)
[2024-03-23 08:40] LABS: Bacteria Urine None Seen (None Seen); Hyaline Casts Urine 0-2 /LPF (0-2); RBC Urine 0-2 /HPF (0-2); Squamous Epithelial Cell Urine 0-2 /HPF (0-2); WBC Urine 0-5 /HPF (0-5)
[2024-03-23 09:09] LABS: Alanine Aminotransferase 47 U/L (0-40); Albumin Level 4.2 g/dL (3.5-5.0); Alkaline Phosphatase 64 U/L (39-117); Anion Gap 13 (12-20); Aspartate Amino Transferase 38 U/L (5-37); Bilirubin Total 0.8 mg/dL (0.0-1.0); Blood Urea Nitrogen 14 mg/dL (9-16); Calcium 9.9 mg/dL (8.4-10.2); Carbon Dioxide 25 mmol/L (22-29); Chloride 107 mmol/L (96-108); Cholesterol 161 mg/dL (<200); Estimated Glomerular Filt Rate > 60; Glucose Fasting 106 mg/dL (60-99); HDL Cholesterol 44 mg/dL (>40); Iron 75 mcg/dL (45-160); LDL Cholesterol Calculated 100 mg/dL (<100); Percent Iron Saturation 31 % (15-50); Potassium 3.9 mmol/L (3.3-5.1); Sodium 141 mmol/L (135-145); Total Iron Binding Capacity 240 mcg/dL (228-428); Total Protein 7.8 g/dL (6.5-8.0); Triglycerides 86 mg/dL (<150); Unsaturated Iron Binding 165 ug/dL
[2024-03-23 09:27] LABS: Ferritin 889 ng/mL (20-250)
== END 2024-03-23 08:06 | disposition home or self-care (01) ==
LOC: HO.LAB 08:05
PROVIDERS: PCP Nurse Practitioner Family; Visit Provider Nurse Practitioner Family
DX: I10 Essential (primary) hypertension (principal); E78.5 Hyperlipidemia, unspecified; R79.89 Other specified abnormal findings of blood chemistry
CPT/HCPCS: 36415; 80053; 80061; 81001; 82728; 83540; 84443; 85025

== ENCOUNTER → 2024-04-25 08:42 | Outpatient (BNV) | payer BC, SELFPAY | PROVIDERS: PCP Nurse Practitioner Family; Referring Provider Nurse Practitioner Family; Visit Provider Internal Medicine Medical Oncology | DX: R79.89 Other specified abnormal findings of blood chemistry (principal) | CPT/HCPCS: 99204 ==

== ENCOUNTER 2024-09-26 10:02 | Outpatient (AMB) | payer BC, SELFPAY ==
--- NOTE | 2024-09-26 10:04 | A.OFFPC_ITS ---
Vital Signs 09/26/24 10:05 Height 6 ft Weight 231 lb BMI 31.3 BP 130/82 Blood Pressure Location Lt brachial Position Sitting Pulse 90 Pulse Source Pulse Oximeter Pulse Oximetry (%) 96 Oxygen Delivery Method Room Air Intake Visit Reasons: PE Risk Intern Required: No Accompanied by: Self / Same As Patient Allergies cephalexin [From KEFLEX] Allergy (Unknown, Verified 09/26/24 11:11) HIVES Medication List - Last Reconciled 09/26/24 by ADRIANNE Weiss No Known Home Meds Tobacco use date assessed: 09/26/24 Dental Screening Dental Screen Date: 09/26/24 Did you have a dental visit in the last 12 months?: Yes Did you have a dental problem in the last 6 months where you did not have access to dental care?: No Was dental information given to patient?: Patient has dentist HPI PE HPI Details History of Present Illness The patient is a 64-year-old male presenting for a physical examination. Recently, he has taken significant steps to improve his lifestyle, including initiating a routine exercise program and modifying his diet for the better. These changes have positively affected his blood pressure management and his overall health status. He denies any cardiac symptoms including chest pain or shortness of breath, and there are no systemic symptoms like fever or chills. No gastrointestinal or urinary complaints were reported. Further, he denies psychological concerns such as suicidal or homicidal thoughts. During the examination, small, dry, papular growths were noted on his proximal thighs bilaterally, likely representing seborrheic keratosis, likely exacerbated by sun exposure, given his multiple freckles. There are no suspicious lesions identified. Essential hypertension is known in his history, but current lifestyle improvements suggest better control over this condition. Health Maintenance - Exercise routine initiation - Dietary improvements - Regular blood pressure monitoring - Colon cancer screening up to date - Order PSA test Social History - The patient is retired. - Has started a structured exercise rout ine. - Improved dietary habits. Review of Systems - Cardiovascular: Denies chest pain. - Respiratory: Denies shortness of breat h. - Constitutional: Denies fever or chills . - Urinary: Denies any urinary issues. - Gastrointestinal: Denies abdominal iss ues, constipation, diarrhea, blood in stool. - Psychiatric: Denies suicidal or homici daniel ideation. Physical Exam General: Cooperative, healthy appearing, comfortable, no acute distress and well developed Orientation: Patient oriented x3 Limitations: No limitations Head: Normal to inspection Ears: Hearing grossly normal bilaterally Nose: Normal external nose present Face and sinus: Normal facial exam Eyes: Appearance normal, both eyes and all related structures Neck: Normal visual inspection and Yes full ROM Respiratory: Normal respiratory effort and able to speak in complete sentences. Clear to auscultation bilaterally Cardiovascular: Regular rate and rhythm. Normal S1 and S2 GI: Normal to inspection. Soft to palpation and nontender gu: lauro: no nodules palpated, did not feel enlarged Skin: Small papular growths mostly on proximal thighs, bilateral. Dry appearing, possible seborrheic keratosis. Multiple freckles noted. Referral to dermatology for evaluation. Neuro: Patient oriented x3 Extremities: Normal to inspection Results Plan The patient's wellness examination focused on maintaining improved control of essential hypertension attributed to a healthier lifestyle incorporating exercise and dietary changes. The small papular lesions on the thighs, suggestive of seborrheic keratosis, require dermatological evaluation, given his sun exposure. I will proceed with a PSA test for routine prostate screening consistent with health maintenance advisories. Continuation of current lifestyle interventions remains crucial, alongside routine surveillance and updated screenings, which presently are in accordance with guidelines. Discussion Notes During the visit, I discussed the current status of the patient's essential hypertension, emphasizing the positive impacts of lifestyle changes like improved diet and regular physical activity. The small growths on the patient's thighs, likely seborrheic keratosis, were acknowledged; I recommended a dermatology referral for further evaluation. We also reviewed the significance of the PSA test in ongoing health maintenance, ensuring the patient's understanding of these preventive measures. Follow-up on these evaluations and any necessary adaptations to his health management plan were planned with patient consent to proceed. Patient Instructions - Continue engagement in regular physica l exercise. - Maintain a healthy diet. - Monitor and keep a log of blood pressu re readings. - Follow up with dermatology as directed for thigh lesions. - Attend to scheduled PSA test and repor t the results. - Remain vigilant for any new or worseni ng symptoms and contact care providers as needed. [facility] Medical History Impingement of left shoulder Lumbar radiculopathy HTN (hypertension) Osteoarthritis of both knees Surgical History S/P shoulder surgery History of colonoscopy Family History Father History of heart attack Mother History of colon cancer Hx of diabetes mellitus Social History Household Members: Spouse Housing: House Alcohol intake: current Alcohol intake frequency: a few times a month Patient Tobacco Use Status: Never used Tobacco e-Cigarette/Vaping Use: Never Used Second Hand Smoke Exposure: No service: No Current occupational status: retired Current occupation: [employer] Current occupational exposures/hazards: No Cognitive needs: No Hearing needs: No Vision needs: No Questionnaire PHQ-9 Over the last 2 weeks, how often have you been bothered by any of the following problems? 1. Little interest or pleasure in doing things: not at all 2. Feeling down, depressed, or hopeless: not at all 3. Trouble falling or staying asleep, or sleeping too much: not at all 4. Feeling tired or having little energy: not at all 5. Poor appetite or overeating: not at all 6. Feeling bad about yourself - or that you are a failure or have let yourself or your family down: not at all 7. Trouble concentrating on things, such as reading the newspaper or watching television: not at all 8. Moving or speaking so slowly that other people could have noticed. Or the opposite - being so fidgety or restless that you have been moving around a lot more than usual: not at all 9. Thoughts that you would be better off or of hurting yourself in some way: not at all Total score: 0 Depression Screening Interpretation: Negative Depression Screening Done: Yes 77783 - PHQ-9 Billing: Yes Source: Developed by Drs. Cristian Moreira, Cat Barajas, Isra Cedeno and colleagues, with an educational santy from [employer]. Thrive Questionnaire Date Thrive assessed: 09/26/24 I am a: Patient What is your living situation today?: I have a steady place to live Within the past 12 months, did the food you bought not last and you didn't have the money to get more?: I choose not to answer this question Within the past 12 months, did you worry whether your food would run out before you got money to buy more?: I choose not to answer this question Do you have trouble paying for medicines?: I choose not to answer this question Do you have trouble getting transportation to medical appointments?: I choose not to answer this question Do you have trouble paying your heating and electricity bill?: I choose not to answer this question Do you have trouble taking care of your child, family member or friend?: I choose not to answer this question Do you have trouble with day-to-day activities such as bathing, preparing meals, shopping, managing finances, etc.?: I choose not to answer this question Are you currently unemployed and looking for a job?: I choose not to answer this question Are you interested in more education?: I choose not to answer this question Please select the resources that you would like help with: None Currently or been in a relationship where the following occur: I choose not to answer THRIVE Score: 0 AUDIT C Alcohol Use Questionnaire (AUDIT-C) 1. How often do you have a drink containing alcohol?: 2-4 times a month 2. How many drinks containing alcohol do you have on a typical day when you are drinking?: 1 or 2 3. How often do you have six or more drinks on one occasion?: Never Total Score: 2 Score Reviewed/Action Taken: Yes JENNIFER-7 AMB Questionnaire JENNIFER-7 Date JENNIFER - 7 assessed: 09/26/24 Feeling nervous, anxious, or on edge: 0 = Not at all Not being able to stop or control worryin = Not at all Worrying too much about different things: 0 = Not at all Trouble relaxin = Not at all Being so restless that it is hard to sit still: 0 = Not at all Becoming easily annoyed or irritable: 0 = Not at all Feeling afraid as if something awful might happen: 0 = Not at all Total JENNIFER-7 score (0-4 normal; 5-9 mild; 10-14 moderate; 15-21 severe): 0 Source: Developed by Drs. Cristian Moreira, Cat Barajas, Isra Cedeno and colleagues, with an educational santy from [employer]. JENNIFER-7 Assessment Billing JENNIFER-7 Assessment Tool: JENNIFER-7 Assessment 37694 Physical exam (Primary Care) Vital Signs: Last Vital Signs Pulse 90 09/26/24 10:05 BP 130/82 09/26/24 10:05 Pulse Ox 96 09/26/24 10:05 Oxygen Delivery Method Room Air 09/26/24 10:05 BMI result Body Mass Index 31.3 Tobacco/Smoking Status: Tobacco use Status Tobacco use date assessed 09/26/24 09/26/24 10:06 Patient Tobacco Use Status Never used Tobacco 09/26/24 10:06 e-Cigarette/Vaping Use Never Used 09/26/24 10:06 PHQ-9: PHQ-9 Score PHQ-9: Total score 0 09/26/24 10:06 Depression Screening Interpretation: Negative Thrive Assessment: Date of Thrive Assessment Date Thrive assessed 09/26/24 09/26/24 10:06 Currently or been in a relationship where the following occur: I choose not to answer Coding Level of Care Code Est Pt Prev Care 40-64y(54065) Diagnoses Physical exam Z00.00 Screening PSA (prostate specific antigen) Z12.5 Skin lesions L98.9 Additional Codes JENNIFER-7 Assessment Billing - JENNIFER-7 Assessment Tool: JENNIFER-7 Assessment 24990 ([id number]) PHQ-9 - 19341 - PHQ-9 Billing: Yes ([id number]) Assessment & Plan Assessment & Plan (1) Physical exam: Code(s): Z00.00 - Encounter for general adult medical examination without abnormal findings Category: Medical (2) Screening PSA (prostate specific antigen): Code(s): Z12.5 - Encounter for screening for malignant neoplasm of prostate Category: Medical (3) Skin lesions: Code(s): L98.9 - Disorder of the skin and subcutaneous tissue, unspecified Category: Medical Plan . Orders: Orders Comprehensive [place]. Panel Fast Today Z00.00 - Encounter for general adult medical examination without abnormal findings Lipid Panel Today Z00.00 - Encounter for general adult medical examination without abnormal findings Complete Blood Count Auto Diff Today Z00.00 - Encounter for general adult medical examination without abnormal findings TSH reflex Free T4 Today Z00.00 - Encounter for general adult medical examination without abnormal findings UA CC w/rflx Micro + Cult Today Z00.00 - Encounter for general adult medical examination without abnormal findings Prostate Specific Antigen Scr Today Z12.5 - Encounter for screening for malignant neoplasm of prostate Referrals Dermatology Referral L98.9 - Disorder of the skin and subcutaneous tissue, unspecified
[2024-09-26 10:05] VITALS: BP 130/82; PULSE 90; O2SAT 96; BMI 31.3
--- OUTSIDE RECORDS SUMMARY | 2024-09-26 11:36 | XMS_ITS ---
Author Organization [facility] Address [address] [place] [address] Care Team Providers Care Vice President Financial Name Role Phone Raymundo Govea Primary Care Provider Unav ailable Black, Erika Unavailable [phone] Allergies Allergen (clinical drug ingredient) Drug/Non Drug Allergy documented on EMR Reaction Allergy Type Onset Date Status Keflex Unknown Drug Allergy Active REASON FOR VISIT Foot pain, Painful nail(s) aggrevated by shoes causing difficulty standing/walking, Heel pain Medications Medication SIG (Take, Route, Frequency, Duration) Notes Start Date End Date Status Medrol 4 MG as directed Orally t hree times a day as directed for 6 days 01/21/2022 Not-Taking Night Splint AFO - L1930 1 wear at rest for 30 days Active Social History Tobacco Use: Social History Observation Description Date Details (start date - stop date) Never Smoker NA - NA Tobacco Use/Smoking Question Answer Notes Are you a: nonsmoker Additional Findings: Tobacco Non-User Current no n-smoker Alcohol Screen Question Answer Notes Did you have a drink contain ing alcohol in the past year? Yes How often did you have a dri nk containing alcohol in the past year? 2 to 3 times a week (3 points) Points 3 Interpretation Negative Tobacco use other than smoking: Question Answer Notes Are you an other tobacco user? No Problems Problem Type SNOMED Code ICD Code Onset Dates Problem Status W/U Status Risk Notes Problem Interstitial myositis (75403704) Interstitial myositis of right foot (M60.171) Active confirmed Vital Signs Height 6 ft in 11/09/2023 Weight 218 lbs 11/09/2023 BMI 29.56 kg/m2 11/09/2023 Procedures Procedure Date Ordered Date Performed Result Body Sit e 42719, J0702- Neuroma/Injection 11/09/2023 N/A Encounters Encounter Location Date Provider Diagnosis [facility] [address] [address] 11/09/2023 Erika Black Metatarsalgia of lef t foot M77.42 ; Plantar fasciitis of right foot M72.2 ; Bursitis of intermetatarsal bursa of left foot M77.52 ; Hammer toe of left foot M20.42 ; Neuritis M79.2 ; Pain in left foot M79.672 ; Pain in left ankle and joints of left foot M25.572 ; Pain of toe of right foot M79.674 ; Onychomycosis B35.1 ; Pain of toe of left foot M79.675 ; Conrad's neuroma of left foot G57.62 ; Pain in right foot M79.671 ; Interstitial myositis of right foot M60.171 and Bursitis of right foot M77.51 Assessments Encounter Date Diagnosis (ICD Code) Assessment Notes Treatment Notes Treatment Clinical Notes Section Notes 11/09/2023 Metatarsalgia of left foot (ICD-10 - M77.42) 11/09/2023 Plantar fasciitis of right foot (ICD-10 - M72.2) Patient Educated with: HEEL CORD STRETCHES.pdf (HEEL CORD STRETCHES.pdf ) Patient Educated with: RICE THERAPY.pdf (RICE THERAPY.pdf) 11/09/2023 Bursitis of intermetatarsal bursa of left foot (ICD-10 - M77.52) 11/09/2023 Hammer toe of left foot (ICD-10 - M20.42) 11/09/2023 Neuritis (ICD-10 - M79.2) 11/09/2023 Pain in left foot (ICD-10 - M79.672) 11/09/2023 Pain in left ankle and joints of left foot (ICD-10 - M25.572) 11/09/2023 Pain of toe of right foot (ICD-10 - M79.674) 11/09/2023 Onychomycosis (ICD-10 - B35.1) 11/09/2023 Pain of toe of left foot (ICD-10 - M79.675) 11/09/2023 Conrad's neuroma of left foot (ICD-10 - G57.62) Resistant to previous conservative treatment Patient Educated with: INJECTIONTHER APY.pdf (INJECTIONTHE RAPY.pdf) 11/09/2023 Pain in right foot (ICD-10 - M79.671) 11/09/2023 Interstitial myositis of right foot (ICD-10 - M60.171) 11/09/2023 Bursitis of right foot (ICD-10 - M77.51) Plan Of Treatment Medication Medication Name Sig Start Date Stop Date Notes Night Splint AFO - L1930 1 wear at rest for 30 days Treatment Notes Assessment Notes Plantar fasciitis of right foot Patient Educated with: HEEL CORD STRETCHES.pdf (HEEL CORD STRETCHES.pdf) Patient Educated with: RICE THERAPY.pdf (RICE THERAPY.pdf) Conrad's neuroma of left foot Patient Ed ucated with: INJECTIONTHERAPY.pdf (INJECTIONTHERAPY.pdf) Pending Test Test Name Order Date 11914, J0702- Neuroma/Injection 11/09/19 24 Next Appt Details Follow Up: 6 Months, Reason: Provider Name:Erika Dougherty , 11/01/2024 09:15:00 AM, [address] [place] [address], [id number], Procedure Notes * Category Sub-Category Detail Notes Injection Neuroma/Injection 14696, J0702 I njection - Neuroma w/ Celestone Soluspan 3mg combined with 1cc 1 percent Xylocaine Plain anes utilizing aseptic technique. The patient tolerated the procedure well. Post injection instructions were dispensed, verbally discussed, and confirmed understood by the patient. I explained that a steroid and local anesthetic injections are administered to relieve pain and inflammation and thereby meant to improve function. I explained the possible complications including but not limited to signs/symptoms of steroid flare, infection, bruising, atrophy, discoloration of skin, change/deviation in toe position, and that additional injections may be necessary, Patient relates post-procedural pain assessment improved at ( 0-1) out of 10 , LEFT Progress Notes * Álvaro NELSON ADOB:[birth year] (63 yo M)Acc No.[id number]:11/09/2023 Progress Note Patient:Álvaro Sexton Provider:?Erika Dougherty DPM :1960???Age:63 Y???Sex:Male José Miguel e:11/09/2023 Address:[address] [place] [address] , [id number] Pcp:LUIS ALBERTO Bolivar Subjective: * Chief Complaints: * ???Foot painPainful nail(s) aggrevated by shoes causing difficulty standing/walkingHeel pain * HPI: ???Foot Pain:?Nature:?numbness , tingling , sharp , shooting.?Location:?LEFT.?Duration:?several months.?Onset:?denies trauma- bulging disc L4L5S1.?Aggrevated:?standing , any pressure , especially toward the end of the day.?Treatments:?Physical therapy, walking,stretching , change in shoes,decrease activity,volteran gel , cortisone injection (1L).?Severity/Quality:?moderate.?Painful Nails:?Pt States Last PCP Visit:?Date:?09/14/2023 ?Treatments:?apple cidear vingear soaks.?Heel pain:?Location:?Proximal plantar aspect of Heel, RIGHT.?Duration:?, several weeks.?Course:?worse.?Aggrevated:?standing, walking, walking first thing in the morning/after rest.?Treatments:?rest/alter normal daily activity.? * ROS:?General/Constitutional:?Nausea?denies.?Vomiting?denies.?Hunger Thirst?denies.?Loss appetite?denies.?Chills?denies.?Fatigue?denies.?Fever?denies.?Night Sweats?denies.?Unexplained weight loss?denies.?Unexplained weight gain?denies.?HEENTM:?Dentures?denies.?Dizziness?denies.?Glasses/contacts?denies.?Retinopathy?de nies.?Blurred/double vision?denies.?TMJ?denies.?Discharge/drainage?denies.?Implants?denies.?Sore throat?denies.?Dental implants?denies.?Hard of hearing ?denies.?Difficulty chewing/swallowing/speaking?denies.?Nose bleeds?denies.?Sore mouth?denies.?Respiratory:?On Oxygen?denies.?Pneumonia/pleurisy?denies.?Bronchitis?denies.?Emphysema?denies.?C oughing?denies.?Cough blood?denies.?Shortness of breath?denies.?Wheezing?denies.?Cardiovascular:?Pacemaker?denies.?MVP?denies.?WPW?denies.?CHF?denies.?Heart attack?denies.?Septal defect?denies.?Rapid beat?denies.?Chest pain ?denies.?Atrial Fib.?denies.?Murmur/Palpitations?denies.?Gastrointestinal:?Hemorrhoids?denies.?Stomach/Abdominal pain?denies.?Dark blood stool?denies.?Irritable bowel ?denies.?Constipation?denies.?Diarrhea?denies.?Hematology:?Swelling?denies.?Clots?denies.?Varicose Veins?denies.?Bruising?denies.?Bleeding problem?denies.?Genitourinary:?Blood urine?denies.?Frequent/Painfu/urination/bladder control?denies.?Kidney stones?denies.?Infection (UTI)?denies.?Nephropathy?denies.?sex trans dis (STD)?denies.?Prostate?denies.?Musculoskeletal:?Hammertoes?denies.?Bunions?denies.?Back Pain?admits.?Muscle Cramps/ Resting?denies.?Muscle cramps / walking?denies.?Generalized aches and pains?admits.?Weakness?denies.?Integ.:?Nguyen?denies.?Scars?denies.?Corns/calluses?denies.?Ingrown nails?denies.?Painful nails?admits.?Open Sores?denies.?Rashes?denies.?Neurologic:?Difficulty sleeping?denies.?Brain disorder?denies.?Numbness?admits.?Balance trouble?denies.?Confusion?denies.?Fainting/blackouts?denies.?Tingling?admits.?Tr emors?denies.? * Medical History:? * Surgical History:?tumor morgan christiana finger surgery * Hospitalization/Major Diagno stic Procedure:?[facility] Diverticultis 01/08/2017 * Family History:?Mother: dece ased.?Father: , diagnosed with Diabetic - NIDDM, Unspecified essential hypertension, Unspecified heart disease.? * Social History:?Tobacco Use:?Tobacco Use/Smoking?Are you a:?nonsmoker ?Additional Findings: Tobacco Non-User?Current non-smoker ?Tobacco use other than smoking?Are you an other tobacco user??No ???Drugs/Alcohol:?Drugs?Have you used drugs other than those for medical reasons in the past 12 months??No ?Alcohol Screen?Did you have a drink containing alcohol in the past year??Yes ?How often did you have a drink containing alcohol in the past year??2 to 3 times a week (3 points) ?Points?3 ?Interpretation?Negative ???Miscellaneous:?no Caffeine. ?Children: yes, 3. ?Exercise: yes. ?Marital status: . ?Occupation: [employer]. * Medications:?Not-Taking/PRNM edrol 4 MG Tablet Therapy Pack as directed Orally three times a day as directedMedication List reviewed and reconciled with the patientNot-Taking/PRN Medrol 4 MG Tablet Therapy Pack as directed Orally three times a day as directedMedication List reviewed and reconciled with the patient * Allergies:?Keflexyes[Allergi es Verified] Objective: * Vitals:?Ht: 6 ft, Wt: 218, B MT:29.56, Shoe size: 10w. * Examination: ???General Examination: ?GENERAL APPEARANCE:?Reveals a pleasant, alert, well nourished, well developed, well hydrated individual, who demonstrates proper attention to hygene/body habitus, and is in no acute distress.?ORIENTED:?person, place, and time.?Vascular: ?DP PULSES:?2/4, B/L.?PT PULSES:? 2/4, B/L.?Neurological: ?SENSORY:?Neurological exam reveals intact sensorium, pain sensation normal, vibration sensation intact, pinprick sensation is normal in the lower extremities, Pt denies, anesthesia, burning, paresthesia, tingling, B/L.?TINEL'S COMPRESSION:?Negative tarsal tunnel, eleni pedis, and medial calcaneal nerves.?Orthopedic: ?GAIT ABNORMALITY:?antalgic.?FOOT MORPHOLOGY:? Pes Planus structure, Decreased Ankle joint dorsiflexion ROM, knee extended.?DIGITAL DEFORMITIES:?Digital contracture, PIPJ, 2-5 B/L, incompl-reducable to push-up test, no over, nor underlapping,.?MPJ PATHOLOGY:?Plantarflexed MT/MPJ , Pain, swelling, and inflammation to plantar MPJ(s) , 2nd , LEFT , MPJ pain with ROM.?Neuroma Pain: ?PALPATION:?Pain with direct palpation of the intermetatarsal space , 2nd interspace , positive Adia's click, , Pain with lateral compression of metatarsals , LEFT at 40 % less.?Nails: ?NAILS are:?Elongated, overgrown, dystrophic, lytic, greater than 3mm thick, discolored and friable with crumbly malodorous subungual debris, with pain on palpation , T5.?Heel Pain: ?INSPECTION:? Pain on Palpation to Plantar Fascia med. and central bands, intrinsic musc., infra-calcaneal bursa, and med calc tubercle , RIGHT foot, No pain: posterior/superior heel, achilles bursa/tendon, sinus tarsi, peroneals, or with lateral heel compression; no limited STJ ROM, calor, or ecchymosis.? Assessment: * Assessment: 1.?Metatarsalgia of left kanika t - M77.42?2.?Plantar fasciitis of right foot - M72.2 (Primary), Acute problem, Complicated w/ Multiple Tx Options(4),Dx New problem, Prognosis Uncertain (4)?3.?Bursitis of intermetatarsal bursa of left foot - M77.52?4.?Hammer toe of left foot - M20.42?5.?Neuritis - M79.2?6.?Pain in left foot - M79.672?7.?Pain in left ankle and joints of left foot - M25.572?8.?Pain of toe of right foot - M79.674?9.?Onychomycosis - B35.1?10.?Pain of toe of left foot - M79.675?11.?Conrad's neuroma of left foot - G57.62, Resistant to previous conservative treatment?12.?Pain in right foot - M79.671?13.?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 Bursitis of right foot - M77.51? Plan: * Treatment: 2.?Conrad's neuroma of left foot?Procedure: 63022, J0702- Neuroma/Injection Notes: Patient Educated with: INJECTIONTHERAPY.pdf (INJECTIONTHERAPY.pdf)?? * Procedures:?Injection:?Neuroma/Injection?97482, J0702 Injection - Neuroma w/ Celestone Soluspan 3mg combined with 1cc 1 percent Xylocaine Plain anes utilizing aseptic technique. The patient tolerated the procedure well. Post injection instructions were dispensed, verbally discussed, and confirmed understood by the patient. I explained that a steroid and local anesthetic injections are administered to relieve pain and inflammation and thereby meant to improve function. I explained the possible complications including but not limited to signs/symptoms of steroid flare, infection, bruising, atrophy, discoloration of skin, change/deviation in toe position, and that additional injections may be necessary, Patient relates post-procedural pain assessment improved at ( 0-1) out of 10 , LEFT.? * Procedure Codes:?15213 N BLO CK INJ, PLANTAR DIGIT, Modifiers: XS J0702 INJ BETAMETHSN ACTAT&SOD PHOSPH-3MG * Preventive Medicine:? ??Counseling:?Discussion:?-14: Office or other outpatient visit for the evaluation and management of an established patient, which required a medically appropriate history and/or examination and MODERATE level of DECISION MAKING for: 1 OR MORE CHRONIC PROBLEM(S) THATS WORSENING, 2 STABLE CHRONIC PROBLEMS, A NEWLY DIAGNOSED PROBLEM WITH UNCERTAIN PROGNOSIS, AN ACUTE COMPLICATED INJURY WITH MULTIPLE TREATMENT OPTIONS, OR AN ACUTE PROBLEM WITH ACCOMPANYING SYSTEMIC SYMPTOMS, THAT POSE(S) A MODERATE RISK OF MORBIDITY. THIS CONDITION MAY ALSO INCLUDE RX DRUG MANAGEMENT, OR A DECISON FOR MINOR SURGERY. The visit on the day of the encounter encompassed interpreting the data and educating the patient as to the nature of their condition, treatment options available according to their individual PMH, meds, allergies, and overall health/living conditions, as well as any potential risks or complications that may occur from a failure to adhere to, and participate in, the recommended course of therapy. The discussion included a complete verbal, and/or written explanation of the examination results, any x-rays taken, the proposed diagnosis, and outline of the treatment plan. A schedule for future care needs was also explained. The patient verbalized an understanding of the instructions at this time and agreed to be an active participant in their treatment. If the patient should think of any questions or concerns after the visit, I have encouraged the patient to call the office.?F/U Fungal nails:?Reviewed with the patient the time needed before we start seeing results with the topical medication. Discussed the results that we hope to see . We discussed the duration of time needed to see results., Nail debridement performed extensively to reduce/remove overall nail length and girth, subungual debris, and necrotic tissue, by manual and electrical means with use of a nail nipper and/or dremel, to more viable healthy nail plate or bed tissue. Silver nitrate used for any petechial bleeding as necessary.?Heel pain:?FASCIITIS: I explained to the patient the possible etiologies of Plantar Fasciitis including foot type/shoegear/activity level/exercise routine and the risks/benefits of all the different treatment options for heel pain including: No treatment at all, Rest, Ice, NSAIDs(only if well tolerated after meals), New/supportive Shoegear, Strappings and Tapings, Stretching exercises, Deep Tissue Massage, Heel cups/cushions, Arch support/shoe inserts, Custom orthoses, Topical analgesics including Aspercream/Voltaren gel, Night splint AFO for am stiffness, Cortisone injection therapy, Cast boot with crutches/cane/or walker for assisted ambulation, Physical Therapy, EPAT/ESWT, Interfil injection therapy, as well as surgical [place]/Endoscopic Fasciitomy surgical procedures if needed. Recommendations were made to limit barefoot walking, eliminate wearing nonsupportive shoegear (i.e. flip-flops or sandals, or a shoe with an easily bendable, foldable, or twistable sole) and wear shoegear with a good solid sole, a supportive arch, and plenty of room for an insert/orthotic if necessary. If wearing sandals was required by the patient, we recommended orthopedic sandals such as Orthoheel or Birkenstock even while in the home. If the patient wore heels in the past, we recommended they continue, but eliminate the use of flats. The advantages and disadvantages of each option were discussed and the patients questions re: types of shoegear, custom vs prefabricated inserts, activity level, PO vs Topical medications (and their respective potential complications/drug interactions/side effects), and consistency in home treatment regimens for optimal success were answered to their satisfaction. Literature detailing plantar fasciitis and the various treatment options were dispensed and reviewed, Stretching exercises for the patients injury/diagnosis were discussed and demonstrated, Handouts were also given.? * Follow Up:?6 Months * Images: * Sign off status: Completed true * Provider:?Erika Dougherty DPM Date:?2023 Generated for Abelardo reinoso/Veronica/eTerinsmitting on:?09/26/2024 11:35 AM EDT History and Physical Notes * HPI (History of Present Illness) Category Sub-Category Detail Notes Category Not es Heel pain Duration: , several weeks Location: Proximal plantar asp ect of Heel, RIGHT Aggravated: standing, walking, w alking first thing in the morning/after rest Course: worse Treatments: rest/alter normal da anabelle activity Painful Nails Treatments: apple cidear vingear soaks Pt States Last PCP Visit: Date:: 09/14/2023 Foot Pain Nature: numbness , tingling , sharp , shooting Location: LEFT Duration: several months Onset: denies trauma- bulgi ng disc L4L5S1 Aggravated: standing , any press ure , especially toward the end of the day Treatments: Physical therapy, wa lking,stretching , change in shoes,decrease activity,volteran gel , cortisone injection (1L) Severity/Quality: moderate Examination Category Sub-Category Detail Notes Category Not es Neuroma Pain PALPATION: Pain with direct palpation of the intermetatarsal space , 2nd interspace , positive Adia's click, , Pain with lateral compression of metatarsals , LEFT at 40 % less Neurological SENSORY: Neurological exa m reveals intact sensorium, pain sensation normal, vibration sensation intact, pinprick sensation is normal in the lower extremities, Pt denies, anesthesia, burning, paresthesia, tingling, B/L TINEL'S COMPRESSION: Negative tarsal tapan shereen, eleni pedis, and medial calcaneal nerves Orthopedic GAIT ABNORMALITY: antalgic FOOT MORPHOLOGY: Pes Planus structure , Decreased Ankle joint dorsiflexion ROM, knee extended FOOTWEAR EVALUATION: DIGITAL DEFORMITIES: Digital contracture , PIPJ, 2-5 B/L, incompl-reducable to push-up test, no over, nor underlapping, MPJ PATHOLOGY: Plantarflexed MT/MPJ , Pain, swelling, and inflammation to plantar MPJ(s) , 2nd , LEFT , MPJ pain with ROM General Examination GENERAL APPEARANCE: Reveals a pleasant, alert, well nourished, well developed, well hydrated individual, who demonstrates proper attention to hygene/body habitus, and is in no acute distress ORIENTED: person, place, and t zaid Vascular DP PULSES (B): 2/4, B/L PT PULSES (B): 2/4, B/L Nails NAILS are: Elongated, overg rown, dystrophic, lytic, greater than 3mm thick, discolored and friable with crumbly malodorous subungual debris, with pain on palpation , T5 Heel Pain INSPECTION: Pain on Palpatio n to Plantar Fascia med. and central bands, intrinsic musc., infra-calcaneal bursa, and med calc tubercle , RIGHT foot, No pain: posterior/superior heel, achilles bursa/tendon, sinus tarsi, peroneals, or with lateral heel compression; no limited STJ ROM, calor, or ecchymosis
--- OUTSIDE RECORDS SUMMARY | 2024-09-26 11:36 | XMS_ITS | Patient Health Record ---
Author Organization [facility] Marta Alanizley Address [address] [place] [address] Care Team Providers Care Access Services Librarian Name Role Phone Raymundo Govea Primary Care Provider Unav ailable Erika Dougherty Unavailable [phone] Allergies Allergen (clinical drug ingredient) Drug/Non Drug Allergy documented on EMR Reaction Allergy Type Onset Date Status Keflex Unknown Drug Allergy Active Reason For Referral Diagnosis 1 Other hammer toe(s) (acquired), right foot (M20.41) Diagnosis 2 Primary osteoarthrit is, right ankle and foot (M19.071) Diagnosis 3 Idiopathic gout, rig ht ankle and foot (M10.071) Diagnosis 4 Hammer toe of left f oot (M20.42) Diagnosis 5 Conrad's neuroma of left foot (G57.62) Diagnosis 6 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) Diagnosis 7 Plantar fasciitis of right foot (M72.2) Diagnosis 8 Tinea unguium (B35.1 ) Referring Provider First Name Raymundo Referring Provider Last Name Howard [facility] Referred Provider Erika Dougherty Referred Address [address],[place], [place],[address], Referred Provider Specialty Podiatry Referral Priority Routine Medications Medication SIG (Take, Route, Frequency, Duration) [...] Problem Status W/U Status Risk Notes Problem Acquired hammer toe of right foot ([id number] ) Other hammer toe(s) (acquired), right foot (M20.41) Active confirmed Problem Localized, primary osteoarthritis of the ankle and/or foot (109562931) Primary osteoarthritis , right ankle and foot (M19.071) Active confirmed Problem Primary gout (74611088) Idiopathic gout, right ankle and foot (M10.071) Active confirmed Problem Acquired hammer toe of left foot (8756153813567146 ) Hammer toe of left foot (M20.42) Active confirmed Problem Plantar fasciitis of right foot (8359357728700222 1) Plantar fasciitis of right foot (M72.2) Active confirmed Problem [id number] Conrad's neuroma of left foot (G57.62) Active confirmed Resistant to previous conservative treatment Problem Interstitial myositis (04829572) Interstitial myositis of right foot (M60.171) Active confirmed Vital Signs Height 6 ft in 05/03/2024 Weight 218 lbs 05/03/2024 BMI 29.56 kg/m2 05/03/2024 Procedures Procedure Date Ordered Date Performed Result Body Sit e 16807, J0702- Neuroma/Injection 11/09/2023 N/A 78838-JNHWNKO NAIL, 1-5 05/03/2024 N/A 16320, J0702- Neuroma/Injection 05/03/2024 N/A Encounters Encounter Location Date Provider Diagnosis [facility] [address] 11/09/2023 Erika Black Metatarsalgia of lef t [...] M60.171 and Bursitis of right foot M77.51 [facility] [address] [address] 05/03/2024 Erika Black Metatarsalgia of lef t foot [...] ; Interstitial myositis of right foot M60.171 ; Bursitis of right foot M77.51 and Toe pain, right M79.674 Assessments Encounter Date Diagnosis (ICD Code) Assessment Notes Treatment Notes Treatment Clinical Notes Section Notes 11/09/2023 Metatarsalgia of left foot (ICD-10 - M77.42) 11/09/2023 Plantar fasciitis of right foot (ICD-10 - M72.2) Patient Educated with: HEEL CORD STRETCHES.pdf (HEEL CORD STRETCHES.pdf ) Patient Educated with: RICE THERAPY.pdf (RICE THERAPY.pdf) 05/03/2024 Metatarsalgia of left foot (ICD-10 - M77.42) 05/03/2024 Plantar fasciitis of right foot (ICD-10 - M72.2) 05/03/2024 Bursitis of intermetatarsal bursa of left foot (ICD-10 - M77.52) 11/09/2023 Bursitis of intermetatarsal bursa of left foot (ICD-10 - M77.52) 05/03/2024 Hammer toe of left foot (ICD-10 - M20.42) 11/09/2023 Hammer toe of left foot (ICD-10 - M20.42) 11/09/2023 Neuritis (ICD-10 - M79.2) 05/03/2024 Neuritis (ICD-10 - M79.2) 05/03/2024 Pain in left foot (ICD-10 - M79.672) 11/09/2023 Pain in left foot (ICD-10 - M79.672) 11/09/2023 Pain in left ankle and joints of left foot (ICD-10 - M25.572) 05/03/2024 Pain in left ankle and joints of left foot (ICD-10 - M25.572) 05/03/2024 Pain of toe of right foot (ICD-10 - M79.674) 11/09/2023 Pain of toe of right foot (ICD-10 - M79.674) 11/09/2023 Onychomycosis (ICD-10 - B35.1) 05/03/2024 Onychomycosis (ICD-10 - B35.1) 05/03/2024 Pain of toe of left foot (ICD-10 - M79.675) 11/09/2023 Pain of toe of left foot (ICD-10 - M79.675) 11/09/2023 Conrad's neuroma of left foot (ICD-10 - G57.62) Resistant to previous conservative treatment Patient Educated with: INJECTIONTHER APY.pdf (INJECTIONTHE RAPY.pdf) 05/03/2024 Conrad's neuroma of left foot (ICD-10 - G57.62) Resistant to previous conservative treatment Patient Educated with: INJECTIONTHER APY.pdf (INJECTIONTHE RAPY.pdf) 05/03/2024 Pain in right foot (ICD-10 - M79.671) 11/09/2023 Pain in right foot (ICD-10 - M79.671) 11/09/2023 Interstitial myositis of right foot (ICD-10 - M60.171) 05/03/2024 Interstitial myositis of right foot (ICD-10 - M60.171) 05/03/2024 Bursitis of right foot (ICD-10 - M77.51) 11/09/2023 Bursitis of right foot (ICD-10 - M77.51) 05/03/2024 Toe pain, right (ICD-10 - M79.674) Plan Of Treatment Pending Test Test Name Order Date *Uric Acid, Serum 01/20/2022 *Sedimentation Rate-Westergren 2 44757-IRGSAOR NAIL, 1-5 05/03/2024 57359, J0702- Neuroma/Injection 05/03/20 24 63561, J0702- Neuroma/Injection 02/23/20 23 08445, J0702- Neuroma/Injection 11/09/19 24 Nail Panel 05/23/2017 Next Appt Details Provider Name:Erika Mariel Dougherty , 11/01/2024 09:15:00 AM, [address] [place], [address], Insurance Providers Payer Name Payer Address Payer Phone Subscriber Number Group Number Insured Name Patient Relationship to Insured Coverage Start Date Coverage End Date [facility] [address] [place] [address] [phone] [id number] Álvaro Alvarez Self - patient is the insured Medical (General) History Medical History History ICD Code knee pain Diverticulosis Gout Lyme disease Chicken pox Surgical History Surgery Date(Month/Year) tumor removal finger surgery Hospitalization History Reason Date(Month/Year) HH Diverticultis 01/08/2017
--- OUTSIDE RECORDS SUMMARY | 2024-09-26 11:36 | XMS_ITS ---
[facility] Address [address] [place] [place] [address] Care Team Providers Care Wreath Maker Name Role Phone Raymundo Govea Primary Care Provider Unav ailable Black, Erika Unavailable [phone] Allergies Allergen (clinical drug ingredient) Drug/Non Drug [...] Problem Status W/U Status Risk Notes Problem Plantar fasciitis of right foot (6706086329611 9101) Plantar fasciitis of right foot (M72.2) Active confirmed Vital Signs Height 6 ft in 05/03/2024 Weight 218 lbs 05/03/2024 BMI 29.56 kg/m2 05/03/2024 Procedures Procedure Date Ordered Date Performed Result Body Sit e 55716-CSRYQEZ NAIL, 1-5 05/03/2024 N/A 03737, J0702- Neuroma/Injection 05/03/2024 N/A Encounters Encounter Location Date Provider Diagnosis [facility] [address] [place] [address] 05/03/2024 Erika Black Metatarsalgia of lef t [...] Treatment Notes Treatment Clinical Notes Section Notes 05/03/2024 Metatarsalgia of left foot (ICD-10 - M77.42) 05/03/2024 Plantar fasciitis of right foot (ICD-10 - M72.2) 05/03/2024 Bursitis of intermetatarsal bursa of left foot (ICD-10 - M77.52) 05/03/2024 Hammer toe of left foot (ICD-10 - M20.42) 05/03/2024 Neuritis (ICD-10 - M79.2) 05/03/2024 Pain in left foot (ICD-10 - M79.672) 05/03/2024 Pain in left ankle and joints of left foot (ICD-10 - M25.572) 05/03/2024 Pain of toe of right foot (ICD-10 - M79.674) 05/03/2024 Onychomycosis (ICD-10 - B35.1) 05/03/2024 Pain of toe of left foot (ICD-10 - M79.675) 05/03/2024 Conrad's neuroma of left foot (ICD-10 - G57.62) Resistant to previous conservative treatment Patient Educated with: INJECTIONTHER APY.pdf (INJECTIONTHE RAPY.pdf) 05/03/2024 Pain in right foot (ICD-10 - M79.671) 05/03/2024 Interstitial myositis of right foot (ICD-10 - M60.171) 05/03/2024 Bursitis of right foot (ICD-10 - M77.51) 05/03/2024 Toe pain, right (ICD-10 - M79.674) Plan Of Treatment Treatment Notes Assessment Notes Conrad's neuroma of left foot Patient Ed ucated with: INJECTIONTHERAPY.pdf (INJECTIONTHERAPY.pdf) Pending Test Test Name Order Date 45103-ITWHBLC NAIL, 1-5 05/03/2024 09608, J0702- Neuroma/Injection 05/03/20 24 Next Appt Details Follow Up: 6 Months, Reason: Provider Name:Erika Dougherty , 11/01/2024 09:15:00 AM, [address] [place] [address], [place], [address], Procedure Notes * Category Sub-Category Detail Notes Injection Neuroma/Injection 51428, J0702 I njection - Neuroma w/ Celestone [...] ( 0-1) out of 10 , LEFT Debride Nails 1-5 Procedure: Performance of this nail treatment by a nonprofessional would put this patients foot and overall health at risk. Therefore, debridement to affected nail(s) as described in exam was performed extensively to reduce/remove overall nail length, girth, thickness, subungual debris, and necrotic tissue, by manual and/or electrical means through the use of a nail nipper and/or dremel-type tool grinder operator surface, to a more viable healthy nail plate or bed tissue 1-5. Silver nitrate used for any petechial bleeding as necessary. Definitive antifungal treatment options have been reviewed and discussed with the patient. The patient chooses, to continue with soaks tx - 03849 Progress Notes * Álvaro NELSON ADOB:[birth year] (63 yo M)Acc No.[id number]:05/03/2024 Progress Note Patient:?Álvaro Nelson A Provider:?Erika Dougherty DPM :1960???Age:63 Y???Sex:Male José Miguel e:05/03/2024 Address:[address] [place], [place] [address] Pcp:LUIS ALBERTO Bolivar Subjective: * Chief Complaints: * ???Foot painPainful nail(s) aggrevated by shoes causing difficulty standing/walkingHeel pain * HPI: ???Foot Pain:?Nature:?numbness , tingling , sharp , shooting.?Location:?LEFT.?Duration:?several months.?Onset:?denies trauma- bulging disc L4L5S1.?Course:?unchanged.?Aggravated:?standing , any pressure , especially toward the end of the day.?Treatments:?Physical therapy, walking,stretching , change in shoes,decrease activity,volteran gel , cortisone injection (2L).?Severity/Quality:?moderate , Pre-injection procedure pain assessment - (8) out of 10.?Painful Nails:?Pt States Last PCP Visit:?Date:?04/11/2024 ?Course:?improved 50 %.?Treatments:?apple cidear vingear soaks.?Heel pain:?Location:?Proximal plantar aspect of Heel, RIGHT.?Duration:?, several weeks.?Course:?, improved , at approximately 85%.?Aggravated:?standing, walking, walking first thing in the morning/after rest.?Treatments:?rest/alter normal daily activity , AFO-nightsplint , stretching.? * ROS:?General/Constitutional:?Nausea?denies.?Vomiting?denies.?Hunger Thirst?denies.?Loss appetite?denies.?Chills?denies.?Fatigue?denies.?Fever?denies.?Night Sweats?denies.?Unexplained weight loss?denies.?Unexplained [...] 3. ?Exercise: yes. ?Marital status: . ?Occupation: [employer]. * Medications:?TakingNight Spl int AFO - L1930 1 wear at restTaking Night Splint AFO - L1930 1 wear at restNot-Taking/PRNMedrol 4 MG Tablet Therapy Pack as directed Orally three times a day as directedMedication List reviewed and reconciled with the patientNot-Taking/PRN Medrol 4 MG Tablet Therapy Pack as directed Orally three times a day as directedMedication List reviewed and reconciled with the patient * Allergies:?Keflexyes[Allergi es Verified] Objective: * Vitals:?Ht:6 ft, Wt:218, BMI :29.56, Shoe size:10W, Ht-cm: 182.88 cm, Wt-k.88 kg. * Examination: ???General Examination: ?GENERAL APPEARANCE:?Reveals a pleasant, alert, well nourished, well developed, well hydrated individual, who demonstrates proper attention to hygene/body habitus, and is in no acute distress.?ORIENTED:?person, place, and time.?Vascular: ?DP PULSES(B):?2/4, B/L.?PT PULSES(B):? 2/4, B/L.?Neurological: ?SENSORY:?Neurological exam reveals intact sensorium, [...] Pain with lateral compression of metatarsals , LEFT?.?Nails: ?NAILS are:?Elongated, overgrown, dystrophic, lytic, greater than 3mm thick, discolored and friable with crumbly malodorous subungual debris, with pain on palpation , T5 , proximal clearing of nail 50? percent.?Heel Pain: ?INSPECTION:? Pain on Palpation to Plantar Fascia med. and central bands, intrinsic musc., infra-calcaneal bursa, and med calc tubercle , RIGHT foot, No pain: posterior/superior heel, achilles bursa/tendon, sinus tarsi, peroneals, or with lateral heel compression; no limited STJ ROM, calor, or ecchymosis, Approximately 85 % LESS.? Assessment: * Assessment: 1.?Metatarsalgia of left kanika t - M77.42, Acute problem, Stable?2.?Plantar fasciitis of right foot - M72.2 (Primary), Acute problem, Stable,Response to treatment - Improvement?3. Bursitis of intermetatarsal bursa of left foot - M77.52?4.?Hammer toe of left foot - M20.42?5.?Neuritis - M79.2?6.?Pain in left foot - M79.672?7.?Pain in left ankle and joints of left foot - M25.572?8.?Pain of toe of right foot - M79.674?9. 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 Plan: * Treatment: 2.?Conrad's neuroma of left foot?Procedure: 21998, J0702- Neuroma/Injection Notes: Patient Educated with: INJECTIONTHERAPY.pdf (INJECTIONTHERAPY.pdf)?? * Procedures:?Debride Nails 1-5:?Procedure:?Performance of this nail treatment by a nonprofessional would put this patients foot and overall health at risk. Therefore, debridement to affected nail(s) as described in exam was performed extensively to reduce/remove overall nail length, girth, thickness, subungual debris, and necrotic tissue, by manual and/or electrical means through the use of a nail nipper and/or dremel-type tool grinder operator surface, to a more viable healthy nail plate or bed tissue 1-5. Silver nitrate used for any petechial bleeding as necessary. Definitive antifungal treatment options have been reviewed and discussed with the patient. The patient chooses, to continue with soaks?tx - 13467.?Injection:?Neuroma/Injection?98683, J0702 Injection - Neuroma w/ Celestone Soluspan [...] out of 10 , LEFT.? * Procedure Codes:?45116 N BLO CK INJ, PLANTAR DIGIT, Modifiers: XS J0702 INJ BETAMETHSN ACTAT&SOD [id number] DEBRIDE NAIL, 1-5, Modifiers: XS * Preventive Medicine:? ??Counseling:?Discussion:?-14: Office or other [...] have encouraged the patient to call the office.?BioMech.:?I discussed the Pts foot biomechanics with them and how it relates to their problem.?Heel pain:?Discussed other tx options for the patients condition, Given recent successful results to treatment, the patient wishes to continue with the present plan for their condition.?Padding:?Added Metatarsal bar to lining of shoe, The patient and I reviewed the types of shoes they should be wearing. My recommendation included obtaining a well-fitted shoe with a good supportive, non-foldable nor twistable sole, plenty of toe/room for the forefoot, and proper arch support. Based on today's examination, I recommended the patient look for new shoes, by having their feet professionally measured. We discussed that generally the best time of the day for a shoe fitting is the afternoon. Different shoes types and brands to best match the patient's occupation and vocation were discussed. Specific brand selection will be up to the patient, their individual foot condition/deformities, and fit. The patient and I reviewed the standard new shoe break in period by wearing them for a few hours a day while checking for redness or sores as wear time is increased. The patient verbally confirmed to understanding the information discussed.? * Follow Up:?6 Months * Images: * Sign off status: Completed true * Provider:?Erika Dougherty DPM Date:?2023 Generated for Abelardo reinoso/Veronica/Ary on:?09/26/2024 11:35 AM EDT History and Physical Notes * HPI (History of Present Illness) Category Sub-Category Detail Notes Category Not es Heel pain Duration: , several weeks Location: Proximal plantar asp ect of Heel, RIGHT Aggravated: standing, walking, w alking first thing in the morning/after rest Course: , improved , at appr oximately 85% Treatments: rest/alter normal da anabelle activity , AFO-nightsplint , stretching Painful Nails Course: improved 50 % Treatments: apple cidear vingear soaks Pt States Last PCP Visit: Date:: 04/11/2024 Foot Pain Nature: numbness , tingling , sharp , shooting Location: LEFT Duration: several months Onset: denies trauma- bulgi ng disc L4L5S1 Course: unchanged Aggravated: standing , any press ure , especially toward the end of the day Treatments: Physical therapy, wa lking,stretching , change in shoes,decrease activity,volteran gel , cortisone injection (2L) Severity/Quality: moderate , Pre-injec tion procedure pain assessment - (8) out of 10 Examination Category Sub-Category Detail Notes Category Not es Neuroma Pain PALPATION: Pain with direct palpation of the intermetatarsal space , 2nd interspace , positive Adia's click, , Pain with lateral compression of metatarsals , LEFT Neurological SENSORY: Neurological exa m reveals intact [...] debris, with pain on palpation , T5 , proximal clearing of nail 50 percent Heel Pain INSPECTION: Pain on Palpatio n to Plantar Fascia med. and central bands, intrinsic musc., infra-calcaneal bursa, and med calc tubercle , RIGHT foot, No pain: posterior/superior heel, achilles bursa/tendon, sinus tarsi, peroneals, or with lateral heel compression; no limited STJ ROM, calor, or ecchymosis, Approximately 85 % LESS
--- OUTSIDE RECORDS SUMMARY | 2024-09-26 11:36 | XMS_ITS ---
Author Organization [facility] Address [address] [place] [address] Care Team Providers Care Production Statistical Clerk Name Role Phone Howard SAHU, Raymundo Primary Care Provider Unav ailable Erika Dougherty [phone] Encounters Encounter Location Date Provider Diagnosis [address] [address] 04/14/2023 Erika Dougherty Plan Of Treatment Next Appt Details Provider Name:Erika Dougherty , 11/01/2024 09:15:00 AM, [address] [place] [address], [address], Progress Notes * Álvaro NELSON ADOB:[birth year] (64 yo M)Acc No.[id number]:04/14/2023 Progress Notes Patient:?Álvaro NELSON Provider:?Erika Dougherty DPM :1960???Age:62 Y???Sex:Male José Miguel e:04/14/2023 Address:[address] [place] [address] Pcp:LUIS ALBERTO Bolivar Subjective: * Chief Complaints: * ??? * Medical History:? Objective: * Vitals:? Assessment: Plan: * Treatment: * Images: * The named appointment provid er may or may not be the originator of this progress note, and it is not deemed complete until electronically signed by the appointment provider. Sign off status: Pending * Provider:Georgette Dougherty DPM Date:?2022 Generated for Abelardo reinoso/Veronica/Ary on:?09/26/2024 11:36 AM EDT
== END 2024-09-26 11:08 | disposition home or self-care (01) ==
LOC: HO.HMCC 10:03
PROVIDERS: PCP Nurse Practitioner Family; Visit Provider Nurse Practitioner Family
DX: Z00.00 Encounter for general adult medical examination without abnormal findings (principal); Z12.5 Encounter for screening for malignant neoplasm of prostate; L98.9 Disorder of the skin and subcutaneous tissue, unspecified

== ENCOUNTER → 2024-09-26 10:02 | Outpatient (BNVA) | payer BC, SELFPAY | PROVIDERS: PCP Nurse Practitioner Family; Visit Provider Nurse Practitioner Family | DX: Z00.00 Encounter for general adult medical examination without abnormal findings (principal); L98.9 Disorder of the skin and subcutaneous tissue, unspecified | CPT/HCPCS: 96127 ==

== ENCOUNTER 2024-11-01 08:19 | Outpatient (REF) | payer BC, SELFPAY ==
--- OUTSIDE RECORDS SUMMARY | 2024-11-01 08:38 | XMS_ITS ---
Author Organization [facility] Address [address] [place] [address] Care Team Providers Care Traffic Control Signaler Name Role Phone Howard SAHU, Raymundo Primary Care Provider Unav ailable Erika Dougherty [phone] Encounters Encounter Location Date Provider Diagnosis [address] [address] 11/01/2024 Erika Dougherty Plan Of Treatment Next Appt Details Provider Name:Erika Dougherty , 11/01/2024 09:15:00 AM, [address] [place] [address], [address], Progress Notes * Álvaro NELSON ADOB:[birth year] (64 yo M)Acc No.[id number]:11/01/2024 Progress Note Patient:?Álvaro NELSON Provider:?Erika Dougherty DPM :1960???Age:64 Y???Sex:Male José Miguel e:11/01/2024 Address:[address] [place] [address] Pcp:LUIS ALBERTO Bolivar Subjective: * Chief Complaints: * ??? * Medical History:? Objective: * Vitals:? Assessment: Plan: * Treatment: * Images: * The named appointment provid er may or may not be the originator of this progress note, and it is not deemed complete until electronically signed by the appointment provider. Sign off status: Pending * Provider:Georgette Dougherty DPM Date:?2024 Generated for Abelardo reinoso/Veronica/Ary on:?11/01/2024 08:38 AM EDT
--- OUTSIDE RECORDS SUMMARY | 2024-11-01 08:38 | XMS_ITS ---
Author Organization [facility] Address [address] [place] [address] Care Team Providers Care Seafood Preparer Name Role Phone Raymundo Govea Primary Care Provider Unav ailable Black, Erika Unavailable [phone] Allergies Allergen (clinical drug ingredient) Drug/Non Drug [...] Notes Problem Plantar fasciitis of right foot (9896294450978 9101) Plantar fasciitis of right foot (M72.2) Active confirmed Vital Signs Height 6 ft in 05/03/2024 Weight 218 lbs 05/03/2024 BMI 29.56 kg/m2 05/03/2024 Procedures Procedure Date Ordered Date Performed Result Body Sit e 45361-RAUSBCB NAIL, 1-5 05/03/2024 N/A 60283, J0702- Neuroma/Injection 05/03/2024 N/A Encounters Encounter Location Date Provider Diagnosis [facility] [address] [place] [address] 05/03/2024 Erika Black Metatarsalgia of lef t [...] (INJECTIONTHERAPY.pdf) Pending Test Test Name Order Date 63816-SCCNKAR NAIL, 1-5 05/03/2024 23210, J0702- Neuroma/Injection 05/03/20 24 Next Appt Details Follow Up: 6 Months, Reason: Provider Name:Erika Dougherty , 11/01/2024 09:15:00 AM, [address] [place] [address], [place], [address], Procedure Notes * Category Sub-Category Detail Notes Injection Neuroma/Injection 38420, J0702 I njection - Neuroma w/ Celestone [...] use of a nail nipper and/or dremel-type perlite grinder, to a more viable healthy nail plate or bed tissue 1-5. Silver nitrate used for any petechial bleeding as necessary. Definitive antifungal treatment options have been reviewed and discussed with the patient. The patient chooses, to continue with soaks tx - 06258 Progress Notes * Álvaro NELSON ADOB:[birth year] (63 yo M)Acc No.[id number]:05/03/2024 Progress Note Patient:?Álvaro Nelson A Provider:?Erika Dougherty DPM :1960???Age:63 Y???Sex:Male Jsoé Miguel e:05/03/2024 Address:[address] [place], [place] [phone] Pcp:LUIS ALBERTO Bolivar Subjective: * Chief Complaints: [...] 3. ?Exercise: yes. ?Marital status: . ?Occupation: [employer]. * Medications:?TakingNight Spl int [...] * Treatment: 2.?Conrad's neuroma of left foot?Procedure: 41706, J0702- Neuroma/Injection Notes: Patient Educated with: INJECTIONTHERAPY.pdf [...] use of a nail nipper and/or dremel-type perlite grinder, to a more viable healthy nail plate or bed tissue 1-5. Silver nitrate used for any petechial bleeding as necessary. Definitive antifungal treatment options have been reviewed and discussed with the patient. The patient chooses, to continue with soaks?tx - 25009.?Injection:?Neuroma/Injection?91727, J0702 Injection - Neuroma w/ Celestone Soluspan [...] out of 10 , LEFT.? * Procedure Codes:?51185 N BLO CK INJ, PLANTAR DIGIT, Modifiers: XS J0702 INJ BETAMETHSN ACTAT&SOD [id number] DEBRIDE NAIL, 1-5, Modifiers: XS * Preventive [...] Dougherty DPM Date:?2023 Generated for Abelardo reinoso/Veronica/Ary on:?11/01/2024 08:37 AM EDT History and Physical Notes * [...]
--- OUTSIDE RECORDS SUMMARY | 2024-11-01 08:38 | XMS_ITS | Patient Health Record ---
Author Organization [facility] Marta Alanizley Address [address] [place] [address] Care Team Providers Care Maritime Engineer Name Role Phone Raymundo Govea Primary Care Provider Unav ailable Erika Dougherty Unavailable [phone] Allergies Allergen (clinical drug ingredient) Drug/Non Drug [...] Referring Provider Last Name Howard [facility] Referred Provider Erika Dougherty Referred Address [address] [facility],[place],[address], Referred Provider Specialty Podiatry Referral Priority Routine [...] Problem Acquired hammer toe of right foot (6222338481423545 ) Other hammer toe(s) (acquired), right foot (M20.41) Active confirmed Problem Localized, primary osteoarthritis of the ankle and/or foot (185060477) Primary osteoarthritis , right ankle and foot (M19.071) Active confirmed Problem Primary gout (39632486) Idiopathic gout, right ankle and foot (M10.071) Active confirmed Problem Acquired hammer toe of left foot (6259702526272685 ) Hammer toe of left foot (M20.42) Active confirmed Problem Plantar fasciitis of right foot (0473239758506019 1) Plantar fasciitis of right foot (M72.2) Active confirmed Problem 104522599062333 Conrad's neuroma of left foot (G57.62) Active confirmed Resistant to previous conservative treatment Problem Interstitial myositis (24359059) Interstitial myositis of right foot (M60.171) Active confirmed Vital Signs Height 6 ft in 05/03/2024 Weight 218 lbs 05/03/2024 BMI 29.56 kg/m2 05/03/2024 Procedures Procedure Date Ordered Date Performed Result Body Sit e 25349-MJTHWGY NAIL, 1-5 05/03/2024 N/A 51783, J0702- Neuroma/Injection 05/03/2024 N/A 57978, J0702- Neuroma/Injection 11/09/2023 N/A Encounters Encounter Location Date Provider Diagnosis [facility] [address] 11/09/2023 Erika Black Metatarsalgia of lef t [...] M60.171 and Bursitis of right foot M77.[address] [facility] [address] [address] 05/03/2024 Erika Black Metatarsalgia of lef t [...] of left foot (ICD-10 - M79.675) 11/09/2023 Cnorad's neuroma of left foot (ICD-10 - G57.62) [...] *Uric Acid, Serum 01/20/2022 *Sedimentation Rate-Westergren 2 28662-QIGGNHC NAIL, 1-5 05/03/2024 84918, J0702- Neuroma/Injection 05/03/20 24 00822, J0702- Neuroma/Injection 02/23/20 23 63731, J0702- Neuroma/Injection 11/09/19 24 Nail Panel 05/23/2017 Next Appt Details Provider Name:Erika Mariel Dougherty , 11/01/2024 09:15:00 AM, [address] [place], [address], Insurance Providers Payer Name Payer Address Payer Phone Subscriber Number Group Number Insured Name Patient Relationship to Insured Coverage Start Date Coverage End Date [facility] [address] [place] [address] [id number] Álvaro Alvarez Self - patient is the insured Medical (General) History Medical History History ICD Code knee pain Diverticulosis Gout Lyme disease Chicken pox Surgical History Surgery Date(Month/Year) tumor removal finger surgery Hospitalization History Reason Date(Month/Year) HH Diverticultis 01/08/2017
--- OUTSIDE RECORDS SUMMARY | 2024-11-01 08:39 | XMS_ITS ---
[facility] Address [address] [place] [address] Care Team Providers Care Head Of Merchandise Buying Name Role Phone Raymundo Govea Primary Care Provider Unav ailable Black, Erika Unavailable [phone] Allergies Allergen (clinical drug ingredient) Drug/Non Drug [...] W/U Status Risk Notes Problem Interstitial myositis (76212451) Interstitial myositis of right foot (M60.171) Active confirmed Vital Signs Height 6 ft in 11/09/2023 Weight 218 lbs 11/09/2023 BMI 29.56 kg/m2 11/09/2023 Procedures Procedure Date Ordered Date Performed Result Body Sit e 94649, J0702- Neuroma/Injection 11/09/2023 N/A Encounters Encounter Location Date Provider Diagnosis [facility] [address] [address] 11/09/2023 Erika Black Metatarsalgia of lef t [...] (INJECTIONTHERAPY.pdf) Pending Test Test Name Order Date 84211, J0702- Neuroma/Injection 11/09/19 24 Next Appt Details Follow Up: 6 Months, Reason: Provider Name:Erika Dougherty , 11/01/2024 09:15:00 AM, [address] [place] [address], [address], Procedure Notes * Category Sub-Category Detail Notes Injection Neuroma/Injection 41758, J0702 I njection - Neuroma w/ Celestone [...] Álvaro NELSON ADOB:[birth year] (63 yo M)Acc No.[id number]:11/09/2023 Progress Note Patient:Álvaro Sexton Provider:?Erika Dougherty DPM :1960???Age:63 Y???Sex:Male José Miguel e:11/09/2023 Address:[address] [place] [address] , [facility] Pcp:LUIS ALBERTO Bolivar Subjective: * Chief Complaints: [...] 3. ?Exercise: yes. ?Marital status: . ?Occupation: [employer]. * Medications:?Not-Taking/PRNM edrol 4 MG Tablet Therapy Pack as directed Orally three times a day as directedMedication List reviewed and reconciled with the patientNot-Taking/PRN Medrol 4 MG Tablet Therapy Pack as directed Orally three times a day as directedMedication List reviewed and reconciled with the patient * Allergies:?Keflexyes[Allergi es Verified] Objective: * Vitals:?Ht: 6 ft, Wt: 218, B LA:29.56, Shoe size: 10w. * Examination: ???General Examination: [...] burning, paresthesia, tingling, B/L.?TINEL'S COMPRESSION:?Negative tarsal tunnel, elnei pedis, and medial calcaneal nerves.?Orthopedic: ?GAIT ABNORMALITY:?antalgic.?FOOT [...] * Treatment: 2.?Conrad's neuroma of left foot?Procedure: 24877, J0702- Neuroma/Injection Notes: Patient Educated with: INJECTIONTHERAPY.pdf (INJECTIONTHERAPY.pdf)?? * Procedures:?Injection:?Neuroma/Injection?50451, J0702 Injection - Neuroma w/ Celestone Soluspan [...] out of 10 , LEFT.? * Procedure Codes:?27611 N BLO CK INJ, PLANTAR DIGIT, Modifiers: [...] Interfil injection therapy, as well as surgical Coats/Endoscopic Fasciitomy surgical procedures if needed. Recommendations were [...] Provider:?Erika Dougherty DPM Date:?2023 Generated for Abelardo reinoso/Veronica/eTperry on:?11/01/2024 08:38 AM EDT History and Physical Notes * [...]
--- OUTSIDE RECORDS SUMMARY | 2024-11-01 08:39 | XMS_ITS | Data Portability ---
Author Organization [facility], [facility] Address [address] [place] [address] Care Team Providers Care Record Maker Name Role Phone HUGO MCDOWELL Primary Care Provider [phone] Assessment Encounter Date Assessment Date Assessment LastModified by Organization Details LastModified Time 07/19/2024 07/19/2024 Assessment: Demonstrates good tolerance to all strengthening performed today. Near full PROM all planes. Plan: Continued PT is recommended at 2x/week to decrease pain, improve ROM, increase strength, and optimize shoulder mechanics for functional ADL's. Cont with strengthening. [email or web address] Not available 07/19/2024 11:11:51 07/23/2024 07/23/2024 Assessment: Making steady progress increasing strength. Near full PROM all planes. Plan: Continued PT is recommended at 2x/week to decrease pain, improve ROM, increase strength, and optimize shoulder mechanics for functional ADL's. Cont with strengthening. [email or web address] Not available 07/23/2024 12:04:03 07/25/2024 07/25/2024 Assessment: Making steady progress increasing strength. Near full PROM all planes. Plan: Continued PT is recommended at 2x/week to decrease pain, improve ROM, increase strength, and optimize shoulder mechanics for functional ADL's. Cont with strengthening and finish up PT within the next few weeks [email or web address] Not available 07/25/2024 10:25:56 08/01/2024 08/01/2024 Assessment: COntinues to make good progress increasing ROM and strength. good active motion Plan: Continued PT is recommended at 2x/week to decrease pain, improve ROM, increase strength, and optimize shoulder mechanics for functional ADL's. Cont with strengthening and possible d/c at next visit to Uzma [email or web address] Not available 08/01/2024 10:23:18 08/03/2024 08/03/2024 Assessment: Continues to make good progress increasing ROM and strength. good active motion Plan: D/c to I ZACK [email or web address] Not available 08/03/2024 09:20:50 Plan of Treatment Reminders Order Date Submit Date Provider Last Modified By Organization Details Last Modified Time Details Appointments None record ed. Lab None record ed. Referral None record ed. Procedures None record ed. Surgeries None record ed. Imaging None record ed. Medication Orders None record ed. Patient TargetsNo targets recorded. Patient InstructionsNo instructions recorded. Reason for Referral None Reported. Problems Name Problem SNOMED Code Status Onset Date Resolution Date Notes Provider Name and Address Organization Details Recorded Time Pain of left shoulder joint 043470839838 88261 Active 2023 Vitaly Subramanian PA-C [address], [place], [address] , [facility] 4 11:50:55 Osteoarth ritis of shoulder region 31579104 Active 2023 Vitaly Subramanian PA-C [address], [place], [address] , [facility] 4 12:20:50 Derangeme nt of left shoulder joint 200719039111 61349 Active 2023 Vitaly Subramanian PA-C [address], [place], [address] , [facility] 4 12:21:41 Nontrauma tic complete rupture of rotator cuff of left shoulder 694548536410 9102 Active 2023 Vitaly Subramanian PA-C [address], [place], [address] , [facility] 4 14:30:58 Impingeme nt syndrome of left shoulder region 714615025475 104 Active 2023 VEGA walton [facility] 5 13:42:21 Tear of medial meniscus of knee 658282153 Active 2015 Problem Code: S83.231A ; Problem Code Type: ICD-10; Status: 'A'; Not Available [facility] 4 11:13:44 Chondroma lacia of right patella 415481555238 30776 Active 2015 Problem Code: M22.41; Problem Code Type: ICD-10; Status: 'A'; Not Available [facility] 4 11:13:44 Problem Notes None recorded. Procedures Surgical History Date Name Laterality Status Provider Name and Address Organization Details Recorded Time 5 99392 Therapeutic Exercise (1:1) completed YFN HendrixT [address], [place], [address], [facility] 07/05/2024 09:57:49 5 07719: Hot or Cold Pack completed YFN HendrixT [address], [place], [address], [facility] 07/05/2024 09:57:49 5 66001: Manual therapy completed YFN HendrixT [address], [place], [address], [facility] 07/05/2024 09:57:49 5 55890 Therapeutic Exercise (1:1) cancelled Amara Gonzalez PTA [address], [place], [address], [facility] 07/02/2024 15:33:45 5 72345: Hot or Cold Pack cancelled Amara Gonzalez MANAGER EDITORIAL [address], [place], [address], [facility] 07/02/2024 15:33:45 5 76726: Manual therapy cancelled Amara Gonzalez PTA [address], [place], [address], [facility] 07/02/2024 15:33:45 5 98072 Therapeutic Exercise (1:1) completed Amara Gonzalez, MANAGER EDITORIAL [address], [place], [address], [facility] 06/28/2024 18:25:09 5 76545: Hot or Cold Pack completed Amara Gonzalez PTA [address], [place], [address], [facility] 06/28/2024 18:25:08 5 23449: Manual therapy completed Amara Gonzalez PTA [address], [place], [address], [facility] 06/28/2024 18:25:09 4 99521 Therapeutic Exercise (1:1) completed Amara Gonzalez PTA [address], [place], [address], [facility] 06/25/2024 09:52:46 4 80371: Hot or Cold Pack completed Amara Gonzalez PTA [address], [place], [address], [facility] 06/23/2024 13:43:49 4 02999: Manual therapy completed Amara Gonzalez PTA [address], [place], [address], [facility] 06/23/2024 13:43:49 4 85457 Therapeutic Exercise (1:1) completed Amara Gonzalez PTA [address], [place], [address], [facility] 06/21/2024 10:31:33 4 81340: Hot or Cold Pack completed Amara Gonzalez PTA [address], [place], [address], [facility] 06/21/2024 10:31:33 4 93843: Manual therapy completed Amara Gonzalez PTA [address], [place], [address], [facility] 06/21/2024 10:31:33 4 65259 Therapeutic Exercise (1:1) completed Rodney Byrd, DPT [address], [place], [address], [facility] 06/18/2024 13:27:15 4 21468: Hot or Cold Pack completed Rodney Byrd, DPT [address], [place], [address], [facility] 06/18/2024 13:27:15 4 78445: Manual therapy completed Rodney Byrd, DPT [address], [place], [address], [facility] 06/18/2024 13:27:15 4 89389 Therapeutic Exercise (1:1) completed Amara Gonzalez PTA [address], [place], [address], [facility] 06/13/2024 15:09:07 4 17249: Hot or Cold Pack completed Amara Gonzalez MANAGER EDITORIAL [address], [place], [address], [facility] 06/13/2024 15:09:07 4 99816: Manual therapy completed Amara Gonzalez MANAGER EDITORIAL [address], [place], [address], [facility] 06/13/2024 15:09:07 4 70573 Therapeutic Exercise (1:1) completed Rodney Byrd, DPT [address], [place], [address], [facility] 06/11/2024 12:33:23 4 57832: Hot or Cold Pack completed Rodney Byrd, DPT [address], [place], [address], [facility] 06/11/2024 12:33:35 4 21053: Manual therapy completed Rodney Bryd, DPT [address], [place], [address], [facility] 06/11/2024 12:33:37 4 51339 Therapeutic Exercise (1:1) completed Crescencio Pyser, PT [address], [place], [address], [facility] 06/06/2024 08:22:36 4 92111: Low complexity PT Eval completed Crescencio Pyser, PT [address], [place], [address], [facility] 06/06/2024 08:22:39 Imaging Results None recorded. Procedure Notes None recorded. Medical Equipment None Reported. Allergies Allergen ID Allergen Name Allergen Category Reaction Reaction Severity Criticality Documentation Date Start Date Code Code System Note Provider Name and Address Organization Details Recorded Time 766027 Keflex medicatio n Not available Not available Not available 08/29/2023201016 7 RxNorm Not Available [facility] 4 15:13:33 Medications Name Sig Start Date Stop Date Status Note LastModified by Organization Details LastModified Time metronidazo le 500 mg tablet TAKE 1 TABLET BY MOUTH EVERY 8 HOURS FOR 7 DAYS FOR DIVERTICU LITIS active Not Available Not Available No t Available ciprofloxac in 500 mg tablet TAKE 1 TABLET BY MOUTH TWICE DAILY FOR 7 DAYS FOR DIVERTICU LITIS active Not Available Not Available No t Available pseudoephed rine-guaife nesin ER 80-700 mg tablet,exte nded release as directed TAKE 2 TABLETS EVERY [address] WHILE ON THIS MEDICATIO N 10/23 completed Statu s: 'Disc ontin ued'; Not Available Not Available Not Available naproxen 500 mg tablet TAKE 1 TABLET BY MOUTH TWICE DAILY active Not Available Not Available No t Available oxycodone 5 mg tablet TAKE 1-2 TABLETS BY MOUTH EVERY 4 HOURS NEEDED - MUST LAST 7 DAYS active Not Available Not Available No t Available oxycodone HCl-oxycodo ne-ASA as directed 1 TABLET Q 4 HOURS PRN PAIN DO NOT DRIVE WHILE ON THIS MED 2022 active Statu s: 'Curr ent'; Not Available Not Available Not Available Vitals Date Recorded Body height Body mass index (BMI) Body weight Provider Name and Address Organization Details Last Updated DateTime 07/19/2024 180.34 cm 31.1 kg/m2 294073.1 g EL[place]ETCR JUD [place] [facility] [place] [facility] 07/19/2024 13:25:02 Social History None recorded. Functional Status None recorded. Mental Status None recorded. Family History Nothing Reported. Medical History Condition Response Arthritis Y Hypertension N Past Encounters Encounter ID Performer Location Encounter Start Date Encounter Closed Date Diagnosis/Indication Diagnosis SNOMED-CT Code Diagnosis ICD10 Code Diagnosis Note [id number] NEO Paulino [address] [place] [address] 03/26/2024 11:30:04 04/10/2024 09:46:47 Pain of left shoulder joint 3923803612 3734156 M25.512 Osteoarthr itis of shoulder region 74603621 M19.019 Derangemen t of left shoulder joint 6586632959 4599056 M24.991 [id number] NEO Paulino [address] [place] [address] 04/05/2024 15:40:51 04/25/2024 08:56:05 Nontraumatic complete rupture of rotator cuff of left shoulder 2576542978 222727 M75.814 [id number] NEO Paulino [address] [place] [address] 06/04/2024 07:54:14 06/22/2024 10:56:48 Impingement syndrome of left shoulder region 1326795767 57385 M75.42 [id number] Crescencio Hurtado, PT [facility] [address] [place] [address] 06/07/2024 12:43:37 06/07/2024 14:50:54 Impingement syndrome of left shoulder region 8956716000 58795 M75.42 [id number] Rodney Byrd , DPT [facility] [address] [place] [address] 06/11/2024 10:25:39 06/11/2024 11:30:11 Impingement syndrome of left shoulder region 8695242000 40249 M75.42 [id number] Amara Gonzalez MANAGER EDITORIAL [facility] [address] [place] [address] 06/14/2024 13:21:39 06/14/2024 15:03:58 Impingement syndrome of left shoulder region 7764349274 05129 M75.42 [id number] Rodney Byrd , DPT [facility] [address] [place] [address] 06/18/2024 09:20:10 06/18/2024 14:26:17 Impingement syndrome of left shoulder region 5628798264 61083 M75.42 [id number] Amara Gonzalez MANAGER EDITORIAL [facility] [address] [place] [address] 06/22/2024 09:24:06 06/22/2024 10:07:40 Impingement syndrome of left shoulder region 1708909434 64599 M75.42 [id number] Amara Gonzalez MANAGER EDITORIAL [facility] [address] [place] [address] 06/25/2024 09:26:21 06/25/2024 09:51:03 Impingement syndrome of left shoulder region 9847178325 53013 M75.42 [id number] Amara Gonzalez MANAGER EDITORIAL [facility] [address] [place] [address] 06/29/2024 09:25:30 06/29/2024 09:56:48 Impingement syndrome of left shoulder region 7273648160 32810 M75.42 [id number] Rodney Byrd , DPT [facility] [address] [place] [address] 07/05/2024 09:29:45 07/05/2024 10:13:22 Impingement syndrome of left shoulder region 8659709743 93491 M75.42 [id number] Amara Gonzalez MANAGER EDITORIAL [facility] [address] [place] [address] 07/09/2024 09:28:44 07/09/2024 10:19:34 Impingement syndrome of left shoulder region 0436194112 73554 M75.42 [id number] Amara Carlos, MANAGER EDITORIAL [facility] [address] [place], [place] [address] 07/11/2024 09:28:13 07/11/2024 10:08:58 Impingement syndrome of left shoulder region 3430659133 98464 M75.42 [id number] Rodney Byrd , DPT [facility] [address] [place] [address] 07/17/2024 09:49:36 07/17/2024 10:34:29 Impingement syndrome of left shoulder region 6656548371 89743 M75.42 [id number] MD JON[facility] Johnson [address] [place] [address] 07/19/2024 13:11:50 07/30/2024 12:23:30 Impingement syndrome of left shoulder region 6820578651 79785 M75.42 [id number] Rodney Byrd , DPT [facility] [address] [place] [address] 07/19/2024 09:52:25 07/19/2024 11:02:07 Impingement syndrome of left shoulder region 8248448215 24147 M75.42 [id number] Amara Carlos MANAGER EDITORIAL [facility] [address] [place] [address] 07/23/2024 09:26:49 07/23/2024 09:52:09 Impingement syndrome of left shoulder region 2632399782 37302 M75.42 [id number] Amara Carlos MANAGER EDITORIAL [facility] [address] [place] [address] 07/25/2024 09:26:49 07/25/2024 10:12:04 Impingement syndrome of left shoulder region 5246180827 54286 M75.42 [id number] Amara Gonzalez MANAGER EDITORIAL [facility] [address] [place] [address] 08/01/2024 09:22:52 08/01/2024 10:02:49 Impingement syndrome of left shoulder region 9169388027 91869 M75.42 [id number] Amara Gonzalez [facility]LA [facility] [address] [place] [address] 08/03/2024 07:53:16 08/03/2024 10:19:29 Impingement syndrome of left shoulder region 2695983954 35736 M75.42 Health Concerns Section Related Observation LastModified by Organization Detai ls LastModified Time None Recorded Concern Status LastModified by Organization Details LastModified Time None Recorded Advance Directives Directive None Recorded Payers Encounter Date Sequence Insurance Name Policy Number Policy Pressley Covered Member ID Pressley Member ID Guarantor Name 07/19/2024 1 [place] [facility] [id number] Álvaro A Kim [id number] Álvaro A Kim 07/23/2024 1 [place] [facility] [id number] Álvaro A Kim [id number] Álvaro A [place] 07/25/2024 1 [place] [facility] [id number] Álvaro A Kim [id number] Álvaro A Kim 08/01/2024 1 [place] [facility] [id number] Álvaro A Del [place] [id number] Álvaro A Kim 08/03/2024 1 [place] [facility] [id number] Álvaro A [place] [id number] Álvaro A Kim Notes Date Note Type Note Provider Name and Address Organization Details Recorded Time 07/19/2024 text/html The patient retu rns today 8 weeks status post {{right left*}} arthroscopic rotator cuff repair with associated subacromial decompression and distal clavicle excision. The patient continues to describe njjs-ji-ckxjvoww discomfort, adequately treated with oral anti-inflammatories . Has weaned from narcotic pain medications. Remains compliant with a postoperative physical therapy protocol. Weaned from sling at week 3, then initiated physical therapy. Is currently working on active elevation. No negative postoperative complications or setbacks have been noted. PFMSH and ROS has been reviewed, updated, and signed by me and is located in the patient's chart. On physical examination, well-appearing individual in no acute distress, alert and oriented x 3 with a pleasant affect. Cervical spine range of motion is mildly limited at this time with some minor trapezial irritability. Passive manipulation of the operative shoulder reveals soft subacromial crepitus. Able to support the arm with antigravity strength once positioned. Active-assisted elevation to about 155, external rotation 50, internal rotation approximately 30. Anterior, middle, and posterior deltoid are intact. No shoulder instability. No warmth, no redness nor erythema. No evidence for active infection. Axillary nerve function is intact. Surgical arthroscopy portals are benign. Minimal AC joint pain. No other neurovascular change or compromise is noted. IMPRESSION: Doing well status post recent rotator cuff repair. Is following an expected postoperative path and protocol. Will continue active elevation at this time. Delay rotator cuff/periscapular strengthening until approximately week 10 postoperative. Understands they will continue to be careful with the shoulder as the cuff repair still lacks adequate strength to allow unrestricted use or strengthening. Addressed work notes. Addressed medication refills. New P.T. prescription given. Recheck is scheduled in approximately 8 weeks. Jh Jackson MD [address] [place] [address], [place], [address], [facility] 07/19/2024 13:58:20 07/19/2024 text/html Pt reports doing well, a little sore from removing snow yesterday. Soreness in lateral deltoid Rodney Byrd DPT [address] [place] [address], [place], [address], [facility] 07/19/2024 11:12:28 07/23/2024 text/html Pt reports doing well, noel PEREZ and is happy with progress thus far. Minimal px and soreness present today. Amara Gonzalez PTA [address] [place] [address], [place], [address], [facility] 07/23/2024 12:04:47 07/25/2024 text/html Pt reports doing well, noel PEREZ and is happy with progress thus far. Minimal px and soreness present today. Amara Gonzalez PTA [address], [place], [address], [facility] 07/25/2024 10:26:15 08/01/2024 text/html Pt reports doing well. Minimal px and soreness present today. Pt is happy with progress Amara Gonzalez PTA [address], [place], [address], [facility] 08/01/2024 10:23:42 08/03/2024 text/html Pt reports doing well. Minimal px and soreness present today. Pt is happy with progress Amara Gonzalez PTA [address], [place], [address], [facility] 08/03/2024 09:21:29
[2024-11-01 09:38] LABS: Appearance Urine Clear; Color Urine Yellow; Glucose Urine UA Negative (Negative); Leukocyte Esterase Urine Negative (Negative); Nitrite Urine Negative (Negative); Urine Blood Negative (Negative); Urine Ketones Trace mg/dL (Negative); Urine Protein Negative (Neg-Trace)
[2024-11-01 09:58] LABS: Alanine Aminotransferase 26 U/L (0-40); Albumin Level 4.4 g/dL (3.5-5.0); Alkaline Phosphatase 64 U/L (39-117); Anion Gap 14 (12-20); Aspartate Amino Transferase 25 U/L (5-37); Bilirubin Total 1.6 mg/dL (0.0-1.0); Blood Urea Nitrogen 16 mg/dL (9-16); Calcium 9.9 mg/dL (8.4-10.2); Carbon Dioxide 24 mmol/L (22-29); Chloride 105 mmol/L (96-108); Cholesterol 188 mg/dL (<200); Estimated Glomerular Filt Rate > 60; Glucose Fasting 104 mg/dL (60-99); HDL Cholesterol 53 mg/dL (>40); LDL Cholesterol Calculated 121 mg/dL (<100); Potassium 3.9 mmol/L (3.3-5.1); Sodium 139 mmol/L (135-145); Total Protein 7.7 g/dL (6.5-8.0); Triglycerides 73 mg/dL (<150)
[2024-11-01 10:18] LABS: TSH reflex Free T4 1.07 uIU/mL (0.32-4.0)
[2024-11-01 10:26] LABS: Prostate Specific Antigen Scr 2.49 ng/mL (<0.05-4.0)
== END 2024-11-01 08:20 | disposition home or self-care (01) ==
LOC: HO.LAB 08:19
PROVIDERS: PCP Nurse Practitioner Family; Visit Provider Nurse Practitioner Family
DX: Z00.00 Encounter for general adult medical examination without abnormal findings (principal); Z12.5 Encounter for screening for malignant neoplasm of prostate; Z13.6 Encounter for screening for cardiovascular disorders
CPT/HCPCS: 36415; 80053; 80061; 81003; 84153; 84443

== ENCOUNTER 2025-03-28 08:52 | Outpatient (AMB) | payer BC, SELFPAY ==
[2025-03-28 09:00] VITALS: BP 130/82; PULSE 69; RESP 16; TEMP 37.1; O2SAT 99; BMI 30.2
--- NOTE | 2025-03-28 09:00 | MHC.PC.OV ---
Vital Signs 03/28/25 09:00 Height 6 ft Weight 223 lb BMI 30.2 BP 130/82 Blood Pressure Location Lt brachial Position Sitting Respiration 16 Pulse 69 Pulse Source Pulse Oximeter Temp 98.7 F Temp Source Oral Pulse Oximetry (%) 99 Intake Visit Reasons: 6m follow up Rn Circulating Required: No Accompanied by: Self / Same As Patient Allergies cephalexin (From KEFLEX) Allergy (Unknown, Verified 03/28/25 09:39) HIVES Medication List - Last Reconciled 03/28/25 by SUSAN Weiss- ciprofloxacin HCl 500 mg PO BID 10 days metronidazole 500 mg PO Q8H 10 days Tobacco use date assessed: 03/28/25 Dental Screening Dental Screen Date: 03/28/25 Did you have a dental visit in the last 12 months?: Yes Did you have a dental problem in the last 6 months where you did not have access to dental care?: No Was dental information given to patient?: Patient has dentist HPI 6m follow up HPI Details Chief Complaint The patient presents for follow-up management of hypertension and dyslipidemia. History of Present Illness The patient is a 64-year-old male presenting with hypertension and dyslipidemia management. He is actively engaging in physical exercise by going to the gym and is mindful of his diet, which has contributed to his excellent physical condition and overall well-being. The patient has a history of elevated PSA velocity, which is being monitored with plans to repeat the PSA test during the next lab workup. He is also under hematology care for elevated ferritin levels. Social History - Exercise: Actively goes to the gym - Diet: Watching his diet closely Health Maintenance - Monitoring PSA levels due to increased velocity - Following up with hematology for elevated ferritin Review of Systems - Cardiovascular: Denies chest pain - Respiratory: Denies shortness of breath - Neurological: Denies dizziness or headaches - Ophthalmologic: Denies blurred vision Physical Exam General: Cooperative, healthy appearing, comfortable, no acute distress and well developed Orientation: Patient oriented x3 Limitations: No limitations Head: Normal to inspection Ears: Hearing grossly normal bilaterally Nose: Normal external nose present Face and sinus: Normal facial exam Eyes: Appearance normal, both eyes and all related structures Neck: Normal visual inspection and Yes full ROM Respiratory: Normal respiratory effort and able to speak in complete sentences. Clear to auscultation bilaterally Cardiovascular: Regular rate and rhythm. Normal S1 and S2 GI: Normal to inspection. Soft to palpation and nontender Skin: No rashes or lesions noted Neuro: Patient oriented x3 Extremities: Normal to inspection, no edema plan 1. Essential Hypertension The patient will continue with the current management plan, including regular exercise and dietary monitoring, to maintain blood pressure control. 2. Dyslipidemia The patient is advised to continue with lifestyle modifications, including diet and exercise, to manage lipid levels effectively. 3. Elevated Psa Velocity The PSA test will be repeated during the next lab workup to monitor the elevated PSA velocity. 4. Elevated Ferritin The patient is following up with hematology for further evaluation and management of elevated ferritin levels. Discussion Notes I discussed with the patient the importance of continuing his current exercise and dietary regimen to manage his hypertension and dyslipidemia effectively. We also talked about the need to repeat the PSA test due to the increased velocity and the ongoing follow-up with hematology for elevated ferritin levels. Patient Instructions - Continue regular exercise and maintain a healthy diet to manage blood pressure and cholesterol levels. - Follow up with hematology as scheduled for elevated ferritin. - Repeat PSA test during the next lab workup. [facility] Medical History Impingement of left shoulder Lumbar radiculopathy HTN (hypertension) Osteoarthritis of both knees Surgical History S/P shoulder surgery History of colonoscopy Family History Father History of heart attack Mother History of colon cancer Hx of diabetes mellitus Social History Household Members: Spouse Housing: House Alcohol intake: current Alcohol intake frequency: a few times a month Patient Tobacco Use Status: Never used Tobacco e-Cigarette/Vaping Use: Never Used Second Hand Smoke Exposure: No service: No Current occupational status: retired Current occupation: [employer] Current occupational exposures/hazards: No Cognitive needs: No Hearing needs: No Vision needs: No Questionnaire Thrive Questionnaire Date Thrive assessed: 09/26/24 I am a: Patient What is your living situation today?: I have a steady place to live Within the past 12 months, did the food you bought not last and you didn't have the money to get more?: I choose not to answer this question Within the past 12 months, did you worry whether your food would run out before you got money to buy more?: I choose not to answer this question Do you have trouble paying for medicines?: I choose not to answer this question Do you have trouble getting transportation to medical appointments?: I choose not to answer this question Do you have trouble paying your heating and electricity bill?: I choose not to answer this question Do you have trouble taking care of your child, family member or friend?: I choose not to answer this question Do you have trouble with day-to-day activities such as bathing, preparing meals, shopping, managing finances, etc.?: I choose not to answer this question Are you currently unemployed and looking for a job?: I choose not to answer this question Are you interested in more education?: I choose not to answer this question Please select the resources that you would like help with: None Currently or been in a relationship where the following occur: I choose not to answer THRIVE Score: 0 JENNIFER-7 AMB Questionnaire JENNIFER-7 Date JENNIFER - 7 assessed: 03/28/25 Feeling nervous, anxious, or on edge: 0 = Not at all Not being able to stop or control worryin = Not at all Worrying too much about different things: 0 = Not at all Trouble relaxin = Not at all Being so restless that it is hard to sit still: 0 = Not at all Becoming easily annoyed or irritable: 0 = Not at all Feeling afraid as if something awful might happen: 0 = Not at all Total JENNIFER-7 score (0-4 normal; 5-9 mild; 10-14 moderate; 15-21 severe): 0 Source: Developed by Drs. Cristian Moreira, Cat Barajas, Isar Cedeno and colleagues, with an educational santy from [employer]. JENNIFER-7 Assessment Billing JENNIFER-7 Assessment Tool: JENNIFER-7 Assessment 71535 Physical exam (Primary Care) Vital Signs: Last Vital Signs Temp 98.7 F 03/28/25 09:00 Pulse 69 03/28/25 09:00 Resp 16 03/28/25 09:00 BP 130/82 03/28/25 09:00 Pulse Ox 99 03/28/25 09:00 BMI result Body Mass Index 30.2 Tobacco/Smoking Status: Tobacco use Status Tobacco use date assessed 03/28/25 03/28/25 09:05 Patient Tobacco Use Status Never used Tobacco 03/28/25 09:05 e-Cigarette/Vaping Use Never Used 03/28/25 09:05 Thrive Assessment: Date of Thrive Assessment Date Thrive assessed 09/26/24 03/28/25 09:05 Currently or been in a relationship where the following occur: I choose not to answer Coding Level of Care Code Est Pt Level 3 (33556) Diagnoses HTN (hypertension) I10 Dyslipidemia E78.5 Increased prostate specific antigen (PSA) velocity R97.20 Additional Codes JENNIFER-7 Assessment Billing - JENNIFER-7 Assessment Tool: JENNIFER-7 Assessment 82529 ([id number]) Assessment & Plan Assessment & Plan (1) HTN (hypertension): Code(s): I10 - Essential (primary) hypertension Category: Medical (2) Dyslipidemia: Code(s): E78.5 - Hyperlipidemia, unspecified Category: Medical (3) Increased prostate specific antigen (PSA) velocity: Code(s): R97.20 - Elevated prostate specific antigen [PSA] Category: Medical Plan . Orders: Orders Comprehensive [place]. Panel Fast Today E78.5 - Hyperlipidemia, unspecified, I10 - Essential (primary) hypertension UA CC w/rflx Micro + Cult Today E78.5 - Hyperlipidemia, unspecified, I10 - Essential (primary) hypertension Lipid Panel Today E78.5 - Hyperlipidemia, unspecified, I10 - Essential (primary) hypertension Prostate Specific Antigen Scr Today R97.20 - Elevated prostate specific antigen [PSA] Complete Blood Count Auto Diff Today E78.5 - Hyperlipidemia, unspecified, I10 - Essential (primary) hypertension TSH reflex Free T4 Today E78.5 - Hyperlipidemia, unspecified, I10 - Essential (primary) hypertension
--- OUTSIDE RECORDS SUMMARY | 2025-03-28 09:26 | XMS_ITS | Clinical Summary ---
Author Organization [facility] Address [address] [facility] [address] [place] [address] Phone Care Team Providers Care Trap Setter Name Role Phone Raymundo Lawrence TURF KEEPER Primary Care Provider + Allergies Active Allergy Reactions Criticality Noted Date Comments Cephalexin 10/26/2019 Medications bacillus coagulans-inulin 1 billion-250 cell-mg Cap Take 250 mg by mouth daily. Active metroNIDAZOLE (FLAGYL) 500 MG tablet Take 1 tablet (500 mg total) by mouth 2 (two) times a day. 20 tablet 06/05/2020 Active Active Problems No known active problems Family History Medical History Relation Comments Brain cancer Father Coronary artery disease Father Relation Status Comments Father Social History Tobacco Use Types Packs/Day Years Used Date Smoking Tobacco: Never Smokeless Tobacco: Never Education Answer Date Recorded Are you interested in more education? Not on jeanette e 10/22/2022 Are you concerned about learning? Not on file 10/22/2022 No 10/22/2022 No 10/22/2022 Digital Access Answer Date Recorded No 11/20/2022 No 11/20/2022 No 11/20/2022 Reliable internet access at home? Not on file 11/20/2022 Device with a working camera? Not on file Sex and Gender Information Value Date Recorded Sex Assigned at Not on file Legal Sex Male 9:16 AM EDT Gender Identity Not on file Sexual Orientation Not on file Last Filed Vital Signs Vital Sign Reading Time Taken Comments Blood Pressure 126/87 06/05/2020 9:51 AM EST Pulse 87 06/05/2020 9:51 AM EST Temperature 36.8 C (98.2 F) 06/05/2020 9:51 AM EST Respiratory Rate 20 06/05/2020 9:51 AM EST Oxygen Saturation 98% 06/05/2020 9:51 AM EST Inhaled Oxygen Concentration - - Weight 103 kg (227 lb) 06/05/2020 9:51 AM EST Height 175.3 cm (5' 9 ) 06/05/2020 9:51 AM EST Body Mass Index 33.52 06/05/2020 9:51 AM EST Plan of Treatment Health Maintenance Due Date Last Done Comments LIPID PANEL 1962 DEPRESSION SCREENING 1974 HEPATITIS C SCREENING 1980 HIV ONE-TIME SCREENING (18-6 5 YEARS) 1980 COLOGUARD 09/01/2007 COLONOSCOPY 09/01/2007 COLORECTAL CANCER SCREENING 09/01/2007 FIT TEST 09/01/2007 FOBT 09/01/2007 SIGMOIDOSCOPY 09/01/2007 VIRTUAL COLONOSCOPY 09/01/2007 PNEUMOCOCCAL VACCINES (50+ y ears) (1 of 1 - PCV) 2012 ZOSTER VACCINES (1 of 2) 2012 Adult Td,Tdap Booster 06/05/2022 06/05/2012 INFLUENZA VACCINE (#1) 2025 COVID-19 VACCINE (2 - 2024-2 6 season) 2025 07/07/2021 RSV VACCINE (1 - 1-dose 75+ series) 2037 SMOKING STATUS SCREENING (On ce After 26 Yrs) Completed 06/05/2020 HEPATITIS A VACCINES Aged Out No long er eligible based on patient's age to complete this topic HIB VACCINES Aged Out No longer eligi ble based on patient's age to complete this topic MENINGOCOCCAL VACCINES (ACWY) Aged Out No longer eligible based on patient's age to complete this topic MENINGOCOCCAL VACCINES (B) Aged Out N o longer eligible based on patient's age to complete this topic Medical Devices [place] [id number] [facility] [place] [id number] [facility] Care Teams Trap Setter Relationship Specialty Start Date End Date Raymundo Lawrence NP [address] [place] [address] PCP - General Family Medicine 10/26/19 Additional Source Comments The information contained in this document represents components of the legal health record. It is not the complete legal health record.[facility]
--- OUTSIDE RECORDS SUMMARY | 2025-03-28 09:26 | XMS_ITS | Patient Health Record ---
Author Organization [facility] Marta Alanizley Address [address] [place] [address] Care Team Providers Care Seat Joiner Chainstitch Name Role Phone Raymundo Govea Primary Care Provider Unav ailable Erika Dougherty Unavailable [phone] Allergies Allergen (clinical drug ingredient) Drug/Non Drug [...] Referring Provider Last Name Howard [facility] Referred Provider Erika Dougherty Referred Address [address] [facility],[place], [place],[address], Referred Provider Specialty Podiatry Referral Priority Routine Medications Medication SIG (Take, Route, Frequency, Duration) Notes Start Date End Date Status Medrol 4 MG as directed Orally t hree times a day as directed; Duration: 6 days 01/21/2022 Not-Taking Night Splint AFO - L1930 1 wear at rest; Duration: 30 days Not-Taking Social History Tobacco Use: Social History Observation [...] Problem Acquired hammer toe of right foot ([id number]) Other hammer toe(s) (acquired), right foot (M20.41) Active confirmed Problem Localized, primary osteoarthritis of the ankle and/or foot (646576096) Primary osteoarthritis , right ankle and foot (M19.071) Active confirmed Problem Primary gout (54456557) Idiopathic gout, right ankle and foot (M10.071) Active confirmed Problem Acquired hammer toe of left foot (8915598883827330) Hammer toe of left foot (M20.42) Active confirmed Vital Signs Blood pressure diastolic 80 mm Hg 11/01/2024 Height 6ft in 11/01/2024 Blood pressure systolic 121 mm Hg 11/01/2024 Weight 221 lbs 11/01/2024 BMI 29.97 kg/m2 11/01/2024 Procedures Procedure Date Ordered Date Performed Result Body Sit e 51708-KEHNPBC NAIL, 1-05/03/2024 N/A 91899, J0702- Neuroma/Injection 05/03/2024 N/A 85778-FEAVFFB NAIL, 1-11/01/2024 N/A Encounters Encounter Location Date Provider Diagnosis [facility] [address] [address] [place] [address] 05/03/2024 Erika Black Metatarsalgia of lef t [...] foot M77.51 and Toe pain, right M79.674 [facility] [address] [address] 11/01/2024 Erika Black Metatarsalgia of lef t foot M77.42 ; Onychomycosis B35.1 ; Bursitis of intermetatarsal bursa of left foot M77.52 ; Hammer toe of left foot M20.42 ; Neuritis M79.2 ; Pain in left foot M79.672 ; Pain in left ankle and joints of left foot M25.572 ; Pain of toe of right foot M79.674 ; Conrad's neuroma of left foot G57.62 and Pain in right foot M79.671 Assessments Encounter Date Diagnosis (ICD Code) Assessment Notes Treatment Notes Treatment Clinical Notes Section Notes 05/03/2024 Metatarsalgia of left foot (ICD-10 - M77.42) 05/03/2024 Plantar fasciitis of right foot (ICD-10 - M72.2) 11/01/2024 Metatarsalgia of left foot (ICD-10 - M77.42) 11/01/2024 Onychomycosis (ICD-10 - B35.1) 11/01/2024 Bursitis of intermetatarsal bursa of left foot (ICD-10 - M77.52) 05/03/2024 Bursitis of intermetatarsal bursa of left foot (ICD-10 - M77.52) 05/03/2024 Hammer toe of left foot (ICD-10 - M20.42) 11/01/2024 Hammer toe of left foot (ICD-10 - M20.42) 11/01/2024 Neuritis (ICD-10 - M79.2) 05/03/2024 Neuritis (ICD-10 - M79.2) 05/03/2024 Pain in left foot (ICD-10 - M79.672) 11/01/2024 Pain in left foot (ICD-10 - M79.672) 05/03/2024 Pain in left ankle and joints of left foot (ICD-10 - M25.572) 11/01/2024 Pain in left ankle and joints of left foot (ICD-10 - M25.572) 05/03/2024 Pain of toe of right foot (ICD-10 - M79.674) 11/01/2024 Pain of toe of right foot (ICD-10 - M79.674) 11/01/2024 Conrad's neuroma of left foot (ICD-10 - G57.62) 05/03/2024 Onychomycosis (ICD-10 - B35.1) 11/01/2024 Pain in right foot (ICD-10 - M79.671) 05/03/2024 Pain of toe of left foot [...] *Uric Acid, Serum 01/20/2022 *Sedimentation Rate-Westergren 2 33746-MUPUCVQ NAIL, 1-5 11/01/2024 10330-AKROYOY NAIL, 1-5 05/03/2024 05364, J0702- Neuroma/Injection 05/03/20 24 79815, J0702- Neuroma/Injection 02/23/20 23 50807, J0702- Neuroma/Injection 11/09/19 24 Nail Panel 05/23/2017 Next Appt Details Provider Name:Erika Dougherty , 05/09/2025 09:00:00 AM, [address] [place], [address], Insurance Providers Payer Name Payer Address Payer Phone Subscriber Number Group Number Insured Name Patient Relationship to Insured Coverage Start Date Coverage End Date [facility] [address] [place] [address] [phone] [id number] Álvaro Alvarez Self - patient is the insured Medical (General) History Medical History History ICD Code knee pain Diverticulosis Gout Lyme disease Chicken pox Surgical History Surgery Date(Month/Year) tumor removal finger surgery rotator cuff tear repair 06/19 Hospitalization History Reason Date(Month/Year) HH Diverticultis 01/08/2017
== END 2025-03-28 13:07 | disposition home or self-care (01) ==
LOC: HO.HMCC 08:53
PROVIDERS: PCP Nurse Practitioner Family; Visit Provider Nurse Practitioner Family
DX: I10 Essential (primary) hypertension (principal); E78.5 Hyperlipidemia, unspecified; R97.20 Elevated prostate specific antigen [PSA]

== ENCOUNTER → 2025-03-28 08:52 | Outpatient (BNVA) | payer BC, SELFPAY | PROVIDERS: PCP Nurse Practitioner Family; Visit Provider Nurse Practitioner Family | DX: I10 Essential (primary) hypertension (principal); E78.5 Hyperlipidemia, unspecified; R97.20 Elevated prostate specific antigen [PSA]; R79.89 Other specified abnormal findings of blood chemistry | CPT/HCPCS: 96127 ==

== ENCOUNTER 2025-06-07 08:57 | Outpatient (REF) | payer BC, SELFPAY ==
[2025-06-07 09:11] LABS: MANUAL DIFF FLAG NO
[2025-06-07 10:05] LABS: Hematocrit 50.2 % (42.0-52.0); Hemoglobin 17.0 g/dl (14.0-18.0); Imm Gran Abs Auto 0.02 X10*3/uL (0.00-0.03); Imm Gran Pct Auto 0.3 % (0.0-0.4); Lymphocytes Absolute Auto 1.5 X10*3/uL (1.2-4.9); Mean Corpuscular HGB Conc 33.9 g/dl (31.0-36.0); Mean Corpuscular Hemoglobin 30.1 pg (27.0-33.0); Mean Corpuscular Volume 89.0 fL (80.0-98.0); NRBC Abs Auto 0.000 X10*3/uL (0.0-0.012); NRBC Pct Auto 0.0 /100WBC (0.0-0.2); Platelet Count 291 X10*3/uL (160-400); Red Blood Count 5.64 X10*6/uL (4.60-5.80); White Blood Count 6.8 X10*3/uL (4.8-10.8)
[2025-06-07 10:14] LABS: Appearance Urine Clear; Glucose Urine UA Negative (Negative); PH 6.0 (5.0-9.0); Specific Gravity - Urine 1.020 (1.005-1.025); UMIC TRIGGER UACC YES
[2025-06-07 10:17] LABS: UACC Culture Trigger YES
[2025-06-07 10:50] LABS: Alanine Aminotransferase 21 U/L (0-40); Albumin Level 4.6 g/dL (3.5-5.0); Alkaline Phosphatase 68 U/L (39-117); Anion Gap 12 (12-20); Aspartate Amino Transferase 22 U/L (5-37); Blood Urea Nitrogen 16 mg/dL (9-16); Calcium 9.9 mg/dL (8.4-10.2); Carbon Dioxide 25 mmol/L (22-29); Chloride 106 mmol/L (96-108); Cholesterol 223 mg/dL (<200); Estimated Glomerular Filt Rate > 60; HDL Cholesterol 57 mg/dL (>40); Potassium 3.9 mmol/L (3.3-5.1); Sodium 139 mmol/L (135-145); Total Protein 7.9 g/dL (6.5-8.0); Triglycerides 115 mg/dL (<150)
== END 2025-06-07 08:58 | disposition home or self-care (01) ==
LOC: HO.LAB 08:57
PROVIDERS: PCP Nurse Practitioner Family; Visit Provider Nurse Practitioner Family
DX: I10 Essential (primary) hypertension (principal); E78.5 Hyperlipidemia, unspecified; R97.20 Elevated prostate specific antigen [PSA]; Z12.5 Encounter for screening for malignant neoplasm of prostate
CPT/HCPCS: 36415; 80053; 80061; 81001; 81003; 84153; 84443; 85025; 87086